=== PATIENT | female | born 1995 | race Caucasian/White ===

== ENCOUNTER 2018-03-29 13:02 | Emergency (ER) | payer OTHER ==
[2018-03-29 13:15] VITALS: O2SAT 99
[2018-03-29] MEDS ORDERED: Sodium Chloride 0.9% 1000 ML 1,000 ML IV STA (13:41)
[2018-03-29] MEDS ORDERED: Sodium Chloride 0.9% 1000 ML 1,000 ML ONE (13:51)
--- NOTE | 2018-03-29 13:55 | ERPHSYRPT ---
- History of Present Illness Time Seen by Provider: 03/29/18 13:20 Source: patient, program strategist Patient Subjective Stated Complaint: episode of weakness while at work. nasrin has a headache. got hot and dizzy. feeling better now. Triage Nursing Assessment: alert and oriented.able to ambulate to BR per self. nasrin has had a headache that has gone to the right side of her head. became dizzy and weak today. MAE. hope claire. neuro intact. Physician History: 23 y/o white female presents with weakness and dizziness that began uniform force [employer]. pt was at work. pt brought into ED by EMS. dizziness resolved. pt feeling fine yesterday but had a mild headache this am which has resolved. pt is taking celexa and no other meds. pt allergic to morphine. pt denies cp, soa and abd pain. pt denies n/v/d. Timing/Duration: today Severity: mild Modifying Factors: Improves With: other (sx improved spontaneously with time) Associated Symptoms: headaches, weakness, No nausea, No vomiting, No abdominal pain, No shortness of breath, No heartburn, No diaphoresis, No chest pain, No loss of appetite, No malaise, No syncope, No seizure Allergies/Adverse Reactions: morphine Allergy (Verified 03/29/18 13:22) Home Medications: Albuterol Sulfate [Proventil Hfa] 6.7 gm IH DAILY PRN PRN 09/06/13 [History] Bupropion HCl [Wellbutrin] 150 mg PO DAILY 12/06/15 [History] Hx Tetanus, Diphtheria Vaccination/Date Given: Yes (UNKNOWN) Hx Influenza Vaccination/Date Given: No Hx Pneumococcal Vaccination/Date Given: No - Review of Systems Constitutional: Weakness, No Fever, No Chills Eyes: No Symptoms, No Eye Pain, No Vision Changes, No Double Vision Ears, Nose, & Throat: No Symptoms, No Ear Pain, No Nose Congestion, No Mouth Pain, No Throat Swelling, No Painful Swallowing Respiratory: No Symptoms, No Cough, No Dyspnea, No Stridor, No Wheezing Cardiac: No Symptoms, No Chest Pain, No Palpitations, No Syncope Abdominal/Gastrointestinal: No Symptoms, No Abdominal Pain, No Nausea, No Vomiting, No Diarrhea Genitourinary Symptoms: No Symptoms, No Dysuria, No Frequency, No Hematuria Musculoskeletal: Arthralgias, Myalgias, No Deformity, No Fall, No Injury Skin: No Symptoms Neurological: Dizziness, Headache (resolved) Psychological: No Symptoms Endocrine: No Symptoms Hematologic/Lymphatic: No Symptoms Immunological/Allergic: No Symptoms All Other Systems: Reviewed and Negative - Past Medical History Pertinent Past Medical History: Yes Neurological History: Migraines ENT History: No Pertinent History Cardiac History: No Pertinent History Respiratory History: Asthma Endocrine Medical History: No Pertinent History Musculoskeletal History: No Pertinent History GI Medical History: GERD History: No Pertinent History Psycho-Social History: No Pertinent History Female Reproductive Disorders: Other Other Medical History: HPV, Ovarian cysts - Past Surgical History Past Surgical History: Yes Neuro Surgical History: No Pertinent History Cardiac: No Pertinent History Respiratory: No Pertinent History Gastrointestinal: No Pertinent History Genitourinary: No Pertinent History Musculoskeletal: No Pertinent History Female Surgical History: No Pertinent History Other Surgical History: EGD - Social History Smoking Status: Never smoker Exposure to second hand smoke: No Drug Use: none Patient Lives Alone: No Significant Family History: MIGRANES - Female History Hx Now: No - Nursing Vital Signs Nursing Vital Signs: Initial Vital Signs Pulse Rate 85 03/29/18 13:09 Respiratory Rate 18 03/29/18 13:09 Blood Pressure 131/76 03/29/18 13:09 O2 Sat by Pulse Oximetry 99 03/29/18 13:09 Pain Scale Pain Intensity 3 - Physical Exam General Appearance: no apparent distress, alert, anxiety Eye Exam: PERRL/EOMI, eyes nml inspection Ears, Nose, Throat Exam: normal ENT inspection, moist mucous membranes Neck Exam: normal inspection, non-tender, supple, full range of motion Respiratory Exam: normal breath sounds, lungs clear, airway intact, No chest tenderness, No respiratory distress, No accessory muscle use, No rhonchi, No wheezing, No stridor Cardiovascular Exam: regular rate/rhythm, normal heart sounds, normal peripheral pulses Gastrointestinal/Abdomen Exam: soft, normal bowel sounds, No tenderness, No guarding, No rebound Pelvic Exam: not done Rectal Exam: not done Back Exam: normal inspection, normal range of motion, No CVA tenderness, No vertebral tenderness Extremity Exam: normal inspection, normal range of motion, pelvis stable Neurologic Exam: alert, oriented x 3, cooperative, relay associate II-XII nml as tested, nml cerebellar function, nml station & gait, sensation nml, No disoriented, No confusion, No intoxicated appearance, No motor weakness, No facial droop, No slurred speech, No abnormal gait Skin Exam: normal color, warm, dry Lymphatic Exam: No adenopathy SpO2 Interpretation: normal SpO2: 99 Oxygen Delivery: Room Air - Course Nursing assessment & vital signs reviewed: Yes EKG Interpreted by Me: RATE (70), Sinus Rhythm, NORMAL AXIS, NORMAL INTERVALS, NORMAL QRS (when compared to ekg of 09/06/13, there is resolution of sinus tachycardia.) Ordered Tests: Active Orders 24 hr Category Date Time Status Schedule Announcer STAT Care 03/29/18 13:42 Active Clean Catch Urine Specimen STAT Care 03/29/18 13:41 Active EKG-ER Only STAT Care 03/29/18 13:41 Active IV Insertion STAT Care 03/29/18 13:41 Active CBC W DIFF Stat Lab 03/29/18 14:05 Completed CMP Stat Lab 03/29/18 14:05 Completed HCG,QUALITATIVE URINE Stat Lab 03/29/18 14:05 Completed UA W/RFX UR CULTURE Stat Lab 03/29/18 14:05 Completed Urine Triage Profile Stat Lab 03/29/18 14:05 Completed Medication Summary Discontinued Medications Generic Name Dose Route Start Last Admin Trade Name Freq PRN Reason Stop Dose Admin Sodium Chloride 1,000 mls @ 999 mls/hr 03/29/18 13:41 03/29/18 13:53 Sodium Chloride 0.9% 1000 Ml IV 03/29/18 14:41 999 mls/hr .Q1H1M STA Administration Sodium Chloride Confirm 03/29/18 13:51 Sodium Chloride 0.9% 1000 Ml Administered 03/29/18 13:52 Dose 1,000 mls @ ud .ROUTE .STK-MED ONE Lab/Rad Data: Laboratory Result Diagrams 03/29/18 14:05 03/29/18 14:05 Laboratory Results 03/29/18 03/29/18 03/29/18 Range/Units 14:05 14:05 14:05 WBC 7.1 (4.0-10.5) K/mm3 RBC 4.25 (4.1-5.4) M/mm3 Hgb 12.0 (12.0-16.0) gm/dl Hct 36.4 (35-47) % MCV 85.6 (78-100) fl MCH 28.2 (26-32) pg MCHC 33.0 (32-36) g/dl RDW 15.0 H (11.5-14.0) % Plt Count 247 (150-450) K/mm3 MPV 11.4 H (6-9.5) fl Gran % 63.8 (36.0-66.0) % Eos # (Auto) 0.20 (0-0.5) Absolute Lymphs (auto) 1.61 (1.0-4.6) Absolute Monos (auto) 0.73 (0.0-1.3) Lymphocytes % 22.8 L (24.0-44.0) % Monocytes % 10.3 (0.0-12.0) % Eosinophils % 2.8 (0.00-5.0) % Basophils % 0.3 (0.0-0.4) % Absolute Granulocytes 4.51 (1.4-6.9) Basophils # 0.02 (0-0.4) Sodium 139 (137-145) mmol/L Potassium 3.7 (3.5-5.1) mmol/L Chloride 105 (98-107) mmol/L Carbon Dioxide 26 (22-30) mmol/L Anion Gap 12.3 (5-15) MEQ/L BUN 13 (7-17) mg/dL Creatinine 0.56 (0.52-1.04) mg/dL Estimated GFR > 60.0 ML/MIN Glucose 78 (74-106) mg/dL Calcium 9.1 (8.4-10.2) mg/dL Total Bilirubin 0.10 L (0.2-1.3) mg/dL AST 22 (14-36) U/L ALT 18 (0-35) U/L Alkaline Phosphatase 54 (38-126) U/L Serum Total Protein 7.4 (6.3-8.2) g/dL Albumin 4.2 (3.5-5.0) g/dL Urine Color (YELLOW) Urine Appearance (CLEAR) Urine pH (5-6) Ur Specific [place] (1.005-1.025) Urine Protein (Negative) Urine Ketones (NEGATIVE) Urine Blood (0-5) Logan/ul Urine Nitrite (NEGATIVE) Urine Bilirubin (NEGATIVE) Urine Urobilinogen (0-1) mg/dL Ur Leukocyte Esterase (NEGATIVE) Urine WBC (Auto) (0-5) /HPF Urine RBC (Auto) (0-2) /HPF U Epithel Cells (Auto) (FEW) /HPF Urine Mucus (Auto) (NEGATIVE) /HPF Urine Culture Reflexed (NO) Urine Glucose (NEGATIVE) mg/dL Urine HCG, Qual NEGATIVE (Negative) Urine Opiates Level (NEGATIVE) Ur Methadone (NEGATIVE) Urine Barbiturates (NEGATIVE) Ur Phencyclidine (PCP) (NEGATIVE) Urine Amphetamine (NEGATIVE) U Benzodiazepine Level (NEGATIVE) Urine Cocaine (NEGATIVE) Urine Marijuana (THC) (NEGATIVE) 03/29/18 03/29/18 Range/Units 14:05 14:05 WBC (4.0-10.5) K/mm3 RBC (4.1-5.4) M/mm3 Hgb (12.0-16.0) gm/dl Hct (35-47) % MCV (78-100) fl MCH (26-32) pg MCHC (32-36) g/dl RDW (11.5-14.0) % Plt Count (150-450) K/mm3 MPV (6-9.5) fl Gran % (36.0-66.0) % Eos # (Auto) (0-0.5) Absolute Lymphs (auto) (1.0-4.6) Absolute Monos (auto) (0.0-1.3) Lymphocytes % (24.0-44.0) % Monocytes % (0.0-12.0) % Eosinophils % (0.00-5.0) % Basophils % (0.0-0.4) % Absolute Granulocytes (1.4-6.9) Basophils # (0-0.4) Sodium (137-145) mmol/L Potassium (3.5-5.1) mmol/L Chloride (98-107) mmol/L Carbon Dioxide (22-30) mmol/L Anion Gap (5-15) MEQ/L BUN (7-17) mg/dL Creatinine (0.52-1.04) mg/dL Estimated GFR ML/MIN Glucose (74-106) mg/dL Calcium (8.4-10.2) mg/dL Total Bilirubin (0.2-1.3) mg/dL AST (14-36) U/L ALT (0-35) U/L Alkaline Phosphatase (38-126) U/L Serum Total Protein (6.3-8.2) g/dL Albumin (3.5-5.0) g/dL Urine Color YELLOW (YELLOW) Urine Appearance SLIGHTLY CLOUDY (CLEAR) Urine pH 6.0 (5-6) Ur Specific [place] 1.016 (1.005-1.025) Urine Protein NEGATIVE (Negative) Urine Ketones NEGATIVE (NEGATIVE) Urine Blood NEGATIVE (0-5) Logan/ul Urine Nitrite NEGATIVE (NEGATIVE) Urine Bilirubin NEGATIVE (NEGATIVE) Urine Urobilinogen 2 (0-1) mg/dL Ur Leukocyte Esterase TRACE (NEGATIVE) Urine WBC (Auto) 0-2 (0-5) /HPF Urine RBC (Auto) 0-2 (0-2) /HPF U Epithel Cells (Auto) RARE (FEW) /HPF Urine Mucus (Auto) SLIGHT (NEGATIVE) /HPF Urine Culture Reflexed NO (NO) Urine Glucose NEGATIVE (NEGATIVE) mg/dL Urine HCG, Qual (Negative) Urine Opiates Level NEGATIVE (NEGATIVE) Ur Methadone NEGATIVE (NEGATIVE) Urine Barbiturates NEGATIVE (NEGATIVE) Ur Phencyclidine (PCP) NEGATIVE (NEGATIVE) Urine Amphetamine NEGATIVE (NEGATIVE) U Benzodiazepine Level NEGATIVE (NEGATIVE) Urine Cocaine NEGATIVE (NEGATIVE) Urine Marijuana (THC) NEGATIVE (NEGATIVE) - Progress Progress: unchanged Counseled pt/family regarding: lab results, diagnosis, need for follow-up - Departure Time of Disposition: 14:51 Departure Disposition: Home Clinical Impression: Weakness, UTI (urinary tract infection) Condition: Stable Critical Care Time: No Referrals: VANESSA JIAN [Primary Care Provider] - Additional Instructions: drink plenty of fluids. use tylenol or ibuprofen for pain issues. follow up with primary doctor for persistent symptoms Prescriptions: Cephalexin Mh 500 mg [Keflex 500 mg] 500 mg PO TID #21 capsule
[2018-03-29 14:14] LABS: BASOPHIL % 0.3 % (0.0-0.4); Basophil (Absolute #) 0.02 (0-0.4); Eosinophil % 2.8 % (0.00-5.0); Granulocyte Absolute (ANC) 4.51 (1.4-6.9); Granulocytes % 63.8 % (36.0-66.0); Hematocrit 36.4 % (35-47); Lymphocyte (Absolute #) 1.61 (1.0-4.6); Lymphocytes % 22.8 % (24.0-44.0); Mean Cell Volume 85.6 fl (78-100); Mean Corpuscular Hemoglobin 28.2 pg (26-32); Mean Platelet Volume 11.4 fl (6-9.5); Monocyte (Absolute #) 0.73 (0.0-1.3); Monocytes % 10.3 % (0.0-12.0); Platelet Count 247 K/mm3 (150-450); Red Blood Count 4.25 M/mm3 (4.1-5.4); White Blood Count 7.1 K/mm3 (4.0-10.5)
[2018-03-29 14:20] LABS: Appearance SLIGHTLY CLOUDY (CLEAR); Bilirubin NEGATIVE (NEGATIVE); Blood NEGATIVE Ery/ul (0-5); Glucose NEGATIVE (NEGATIVE); Ketones NEGATIVE (NEGATIVE); Leukocyte Esterase TRACE (NEGATIVE); Nitrite NEGATIVE (NEGATIVE); Protein,Urine Dip NEGATIVE (Negative); Specific Gravity 1.016 (1.005-1.025); Urobilinogen 2 mg/dL (0-1)
[2018-03-29 14:32] LABS: ALBUMIN 4.2 g/dL (3.5-5.0); ALKALINE PHOSPHATASE 54 U/L (38-126); ANION GAP 12.3 MEQ/L (5-15); BLOOD UREA NITROGEN 13 mg/dL (7-17); CHLORIDE 105 mmol/L (98-107); Calcium 9.1 mg/dL (8.4-10.2); Carbon Dioxide 26 mmol/L (22-30); Creatinine 1 0.56 mg/dL (0.52-1.04); Glucose 78 mg/dL (74-106); Potassium 3.7 mmol/L (3.5-5.1); SGOT/AST 22 U/L (14-36); SGPT/ALT 18 U/L (0-35); SODIUM 139 mmol/L (137-145); Total Protein 7.4 g/dL (6.3-8.2)
[2018-03-29 14:38] LABS: Amphetamine,Urine NEGATIVE (NEGATIVE); Barbiturate,Urine NEGATIVE (NEGATIVE); Benzodiazepine,Urine NEGATIVE (NEGATIVE); Cocaine,Urine NEGATIVE (NEGATIVE); Methadone,Urine NEGATIVE (NEGATIVE); Opiate,Urine NEGATIVE (NEGATIVE); PCP,Urine NEGATIVE (NEGATIVE); THC,Urine NEGATIVE (NEGATIVE)
[2018-03-29 15:03] VITALS: BP 127/72; PULSE 72
== END 2018-03-29 15:15 | disposition home or self-care (01) ==
LOC: ED 13:02
DX: R53.1 Weakness (principal); N39.0 Urinary tract infection, site not specified; R42 Dizziness and giddiness; R51 Headache; Z79.899 Other long term (current) drug therapy
CPT/HCPCS: 36000; 36415; 80053; 80307; 81001; 84703; 85025; 93005; 93041; 96360; 99284

== ENCOUNTER 2018-10-09 20:36 | Emergency (ER) | payer OTHER ==
--- NOTE | 2018-10-09 21:14 | ERPHSYRPT ---
- History of Present Illness Time Seen by Provider: 10/09/18 21:14 Source: patient, family Exam Limitations: no limitations Physician History: 23 y/o white female presents one week after 4 wisdom teeth extraction. pt still with pain. pt seen at [facility] 3 days ago. did not receive pain meds. still hurts. pt on pcn. Timing/Duration: gradual onset Severity: moderate ENT Location: dental Prearrival Treatment: over the counter meds Modifying Factors: Improves With: other (chewing hurts) Associated Symptoms: denies symptoms Allergies/Adverse Reactions: morphine Allergy (Verified 10/09/18 21:09) Home Medications: Bupropion HCl [Wellbutrin] 150 mg PO DAILY 12/06/15 [History] Hx Tetanus, Diphtheria Vaccination/Date Given: Yes (UNKNOWN) Hx Influenza Vaccination/Date Given: No Hx Pneumococcal Vaccination/Date Given: No - Review of Systems Constitutional: No Symptoms Eyes: No Symptoms Ears, Nose, & Throat: Other (dental pain surgical site pain) Respiratory: No Symptoms Cardiac: No Symptoms Abdominal/Gastrointestinal: No Symptoms Genitourinary Symptoms: No Symptoms Musculoskeletal: No Symptoms Skin: No Symptoms Neurological: No Symptoms Psychological: No Symptoms Endocrine: No Symptoms Hematologic/Lymphatic: No Symptoms Immunological/Allergic: No Symptoms All Other Systems: Reviewed and Negative - Past Medical History Pertinent Past Medical History: Yes Neurological History: No Pertinent History ENT History: No Pertinent History Cardiac History: No Pertinent History Respiratory History: Asthma Endocrine Medical History: No Pertinent History Musculoskeletal History: No Pertinent History GI Medical History: GERD History: No Pertinent History Psycho-Social History: No Pertinent History Female Reproductive Disorders: Other Other Medical History: HPV, Ovarian cysts - Past Surgical History Past Surgical History: Yes Neuro Surgical History: No Pertinent History Cardiac: No Pertinent History Respiratory: No Pertinent History Gastrointestinal: No Pertinent History Genitourinary: No Pertinent History Musculoskeletal: No Pertinent History Female Surgical History: No Pertinent History Other Surgical History: EGD - Social History Smoking Status: Never smoker Exposure to second hand smoke: No Drug Use: none Patient Lives Alone: No Significant Family History: MIGRANES - Nursing Vital Signs Nursing Vital Signs: Initial Vital Signs Temperature 98.2 F 10/09/18 21:10 Pulse Rate 86 10/09/18 21:10 Respiratory Rate 16 10/09/18 21:10 Blood Pressure 155/81 10/09/18 21:10 O2 Sat by Pulse Oximetry 96 04/23/19 21:10 Pain Scale Pain Intensity 7 - Physical Exam General Appearance: mild distress, alert, anxiety Eye Exam: bilateral eye: normal inspection, PERRL, EOMI Ear Exam: bilateral ear: auricle normal, canal normal, TM normal Nasal Exam: normal inspection Throat Exam: normal, pharynx normal, dental tenderness (tenderness at all 4 wisdom teeth extraction sites. no abscess. no open pockets) Neck Exam: normal inspection, non-tender, supple, full range of motion, trachea midline Cardiovascular/Respiratory Exam: chest non-tender Abdominal Exam: non-tender Neurologic Exam: alert, oriented x 3, cooperative, tie up worker II-XII nml as tested Skin Exam: normal color, warm SpO2 Interpretation: normal O2 Delivery: Room Air - Progress Progress: unchanged Counseled pt/family regarding: diagnosis, need for follow-up - Departure Departure Disposition: Home Clinical Impression: History of recent dental procedure, Pain, dental Condition: Stable Critical Care Time: No Referrals: VANESSA JAIN [Primary Care Provider] - Additional Instructions: add ibuprofen for pain. follow up with your oral surgeon tomorrow for further pain management issues. continue your antibiotic Prescriptions: Oxycodone HCl/Acetaminophen [Percocet 5-325 mg Tablet] 1 each PO Q12H PRN PRN # 4 tablet MDD 2 PRN Reason: Pain
[2018-10-09] MEDS ORDERED: PERCOCET TABLET 5/325MG PO STA (21:29)
[2018-10-09] MEDS ORDERED: PERCOCET TABLET 5/325MG ONE (21:30)
[2018-10-09 21:51] VITALS: BP 155/71; PULSE 90; O2SAT 100
== END 2018-10-09 21:51 | disposition home or self-care (01) ==
LOC: ED 20:36
DX: K08.89 Other specified disorders of teeth and supporting structures (principal); Z98.818 Other dental procedure status
CPT/HCPCS: 99283; A9270-GY

== ENCOUNTER 2019-06-24 22:13 | Emergency (ER) | payer MEDICAID, OTHER ==
--- NOTE | 2019-06-24 22:20 | ERPHSYRPT ---
- History of Present Illness Time Seen by Provider: 06/24/19 22:20 Source: patient, family Exam Limitations: no limitations Physician History: 24 /o white female presents with flu like sx that began a week ago. her initial influenza studies negative. since that time, she has had weakness, fatigue. today she noticed, as well as family, she was confused and slurring her speech. Timing/Duration: week(s) (1) Severity: mild Associated Symptoms: cough, weakness, No nausea, No vomiting, No abdominal pain , No chest pain, No fever Allergies/Adverse Reactions: morphine Allergy (Verified 10/09/18 21:09) Home Medications: Cetirizine HCl [Allergy Relief] 10 mg PO DAILY 06/24/19 [History] Citalopram Hydrobromide [Celexa] 20 mg PO DAILY 06/24/19 [History] Montelukast Sodium 10 mg PO DAILY 06/24/19 [History] Hx Tetanus, Diphtheria Vaccination/Date Given: Yes (UNKNOWN) Hx Influenza Vaccination/Date Given: No Hx Pneumococcal Vaccination/Date Given: No - Review of Systems Constitutional: Weakness Eyes: No Symptoms Ears, Nose, & Throat: No Symptoms Respiratory: Cough Cardiac: No Symptoms, No Chest Pain, No Palpitations, No Syncope Abdominal/Gastrointestinal: No Symptoms Genitourinary Symptoms: No Symptoms Musculoskeletal: No Symptoms Skin: No Symptoms Neurological: No Symptoms Psychological: No Symptoms Endocrine: No Symptoms Hematologic/Lymphatic: No Symptoms Immunological/Allergic: No Symptoms All Other Systems: Reviewed and Negative - Past Medical History Pertinent Past Medical History: Yes Neurological History: No Pertinent History ENT History: No Pertinent History Cardiac History: No Pertinent History Respiratory History: Asthma Endocrine Medical History: No Pertinent History Musculoskeletal History: No Pertinent History GI Medical History: GERD History: No Pertinent History Psycho-Social History: No Pertinent History Female Reproductive Disorders: Other Other Medical History: HPV, Ovarian cysts - Past Surgical History Past Surgical History: Yes Neuro Surgical History: No Pertinent History Cardiac: No Pertinent History Respiratory: No Pertinent History Gastrointestinal: No Pertinent History Genitourinary: No Pertinent History Musculoskeletal: No Pertinent History Female Surgical History: No Pertinent History Other Surgical History: EGD - Social History Smoking Status: Never smoker Exposure to second hand smoke: No Drug Use: none Patient Lives Alone: No Significant Family History: MIGRANES - Nursing Vital Signs Nursing Vital Signs: Initial Vital Signs Temperature 98.4 F 06/24/19 22:19 Pulse Rate 79 06/24/19 22:19 Respiratory Rate 13 06/24/19 22:19 Blood Pressure 125/94 06/24/19 22:19 O2 Sat by Pulse Oximetry 100 06/24/19 22:19 Pain Scale Pain Intensity 0 - Physical Exam General Appearance: no apparent distress, alert, anxiety Eye Exam: PERRL/EOMI, eyes nml inspection Ears, Nose, Throat Exam: normal ENT inspection, moist mucous membranes Neck Exam: normal inspection, non-tender, supple, full range of motion Respiratory Exam: normal breath sounds, lungs clear, airway intact, No chest tenderness, No respiratory distress Cardiovascular Exam: regular rate/rhythm, normal heart sounds, normal peripheral pulses Gastrointestinal/Abdomen Exam: soft, normal bowel sounds, No tenderness Pelvic Exam: not done Rectal Exam: not done Back Exam: normal inspection, normal range of motion, No CVA tenderness Extremity Exam: normal inspection, normal range of motion, pelvis stable Neurologic Exam: alert, oriented x 3, cooperative, director of retention II-XII nml as tested, normal mood/affect, nml cerebellar function, nml station & gait Skin Exam: normal color, warm, dry Lymphatic Exam: No adenopathy SpO2 Interpretation: normal O2 Delivery: Room Air - Course Nursing assessment & vital signs reviewed: Yes Ordered Tests: Active Orders 24 hr Category Date Time Status IV Insertion STAT Care 06/24/19 22:48 Active HEAD WITHOUT CONTRAST [CT] Stat Exams 06/25/19 00:03 Taken AMYLASE Stat Lab 06/24/19 23:15 Completed CBC W DIFF Stat Lab 06/24/19 23:15 Completed CMP Stat Lab 06/24/19 23:15 Completed HCG,QUALITATIVE URINE Stat Lab 06/25/19 02:10 Completed LIPASE Stat Lab 06/24/19 23:15 Completed Lactic Acid Stat Lab 06/24/19 23:25 Completed Manual Differential NC Stat Lab 06/24/19 23:15 Completed [place] Screen Stat Lab 06/24/19 23:15 Completed UA W/RFX UR CULTURE Stat Lab 06/24/19 02:10 Completed Medication Summary Discontinued Medications Generic Name Dose Route Start Last Admin Trade Name Freq PRN Reason Stop Dose Admin Sodium Chloride 1,000 mls @ 999 mls/hr 06/24/19 22:48 06/25/19 00:51 Sodium Chloride 0.9% 1000 Ml IV 06/24/19 23:48 999 mls/hr .Q1H1M STA Administration Sodium Chloride Confirm 06/25/19 00:51 Sodium Chloride 0.9% 1000 Ml Administered 06/25/19 00:52 Dose 1,000 mls @ ud .ROUTE .STK-MED ONE Ondansetron HCl 4 mg 06/24/19 22:48 06/25/19 00:52 Zofran 4 Mg/2 Ml Vial IV 06/24/19 22:49 4 mg STAT ONE Administration Ondansetron HCl Confirm 06/25/19 00:51 Zofran 4 Mg/2 Ml Vial Administered 06/25/19 00:52 Dose 4 mg .ROUTE .STK-MED ONE Lab/Rad Data: Laboratory Result Diagrams 06/24/19 23:15 06/24/19 23:15 Laboratory Results 06/25/19 06/24/19 06/24/19 Range/Units 02:10 23:25 23:15 WBC (4.0-10.5) K/mm3 RBC (4.1-5.4) M/mm3 Hgb (12.0-16.0) gm/dl Hct (35-47) % MCV (78-100) fl MCH (26-32) pg MCHC (32-36) g/dl RDW (11.5-14.0) % Plt Count (150-450) K/mm3 MPV (7.5-11.0) fl Absolute Granulocytes (1.4-6.9) Sodium (137-145) mmol/L Potassium (3.5-5.1) mmol/L Chloride (98-107) mmol/L Carbon Dioxide (22-30) mmol/L Anion Gap (5-15) MEQ/L BUN (7-17) mg/dL Creatinine (0.52-1.04) mg/dL Estimated GFR ML/MIN Glucose (74-106) mg/dL Lactic Acid 1.2 (0.4-2.0) Calcium (8.4-10.2) mg/dL Total Bilirubin (0.2-1.3) mg/dL AST (14-36) U/L ALT (0-35) U/L Alkaline Phosphatase (38-126) U/L Serum Total Protein (6.3-8.2) g/dL Albumin (3.5-5.0) g/dL Amylase (30-110) U/L Lipase (23-300) U/L Urine Color (YELLOW) Urine Appearance (CLEAR) Urine pH (5-6) Ur Specific [place] (1.005-1.025) Urine Protein (Negative) Urine Ketones (NEGATIVE) Urine Blood (0-5) Logan/ul Urine Nitrite (NEGATIVE) Urine Bilirubin (NEGATIVE) Urine Urobilinogen (0-1) mg/dL Ur Leukocyte Esterase (NEGATIVE) Urine RBC (Auto) (0-2) /HPF U Epithel Cells (Auto) (FEW) /HPF Unidentified Crystals (NEGATIVE) /HPF Other Casts (Auto) (NEGATIVE) /LPF Urine Mucus (Auto) (NEGATIVE) /HPF Urine Culture Reflexed (NO) Urine Glucose (NEGATIVE) mg/dL Urine HCG, Qual NEGATIVE (Negative) Monoscreen (Negative) Influenza Type A Ag NEGATIVE (NEGATIVE) Influenza Type B Ag NEGATIVE (NEGATIVE) RSV (PCR) NEGATIVE (Negative) Group A Strep Antibody NEGATIVE (NEGATIVE) 06/24/19 06/24/19 06/24/19 Range/Units 23:15 23:15 23:15 WBC 6.1 (4.0-10.5) K/mm3 RBC 3.90 L (4.1-5.4) M/mm3 Hgb 10.9 L (12.0-16.0) gm/dl Hct 33.4 L (35-47) % MCV 85.6 (78-100) fl MCH 27.9 (26-32) pg MCHC 32.6 (32-36) g/dl RDW 15.1 H (11.5-14.0) % Plt Count 238 (150-450) K/mm3 MPV 10.4 (7.5-11.0) fl Absolute Granulocytes 2.88 (1.4-6.9) Sodium 140 (137-145) mmol/L Potassium 3.8 (3.5-5.1) mmol/L Chloride 106 (98-107) mmol/L Carbon Dioxide 31 H (22-30) mmol/L Anion Gap 8.0 (5-15) MEQ/L BUN 7 (7-17) mg/dL Creatinine 0.60 (0.52-1.04) mg/dL Estimated GFR > 60.0 ML/MIN Glucose 94 (74-106) mg/dL Lactic Acid (0.4-2.0) Calcium 9.3 (8.4-10.2) mg/dL Total Bilirubin 0.30 (0.2-1.3) mg/dL AST 36 (14-36) U/L ALT 33 (0-35) U/L Alkaline Phosphatase 65 (38-126) U/L Serum Total Protein 7.2 (6.3-8.2) g/dL Albumin 3.9 (3.5-5.0) g/dL Amylase 52 (30-110) U/L Lipase 106 (23-300) U/L Urine Color (YELLOW) Urine Appearance (CLEAR) Urine pH (5-6) Ur Specific [place] (1.005-1.025) Urine Protein (Negative) Urine Ketones (NEGATIVE) Urine Blood (0-5) Logan/ul Urine Nitrite (NEGATIVE) Urine Bilirubin (NEGATIVE) Urine Urobilinogen (0-1) mg/dL Ur Leukocyte Esterase (NEGATIVE) Urine RBC (Auto) (0-2) /HPF U Epithel Cells (Auto) (FEW) /HPF Unidentified Crystals (NEGATIVE) /HPF Other Casts (Auto) (NEGATIVE) /LPF Urine Mucus (Auto) (NEGATIVE) /HPF Urine Culture Reflexed (NO) Urine Glucose (NEGATIVE) mg/dL Urine HCG, Qual (Negative) Monoscreen NEGATIVE (Negative) Influenza Type A Ag (NEGATIVE) Influenza Type B Ag (NEGATIVE) RSV (PCR) (Negative) Group A Strep Antibody (NEGATIVE) 06/24/19 Range/Units 02:10 WBC (4.0-10.5) K/mm3 RBC (4.1-5.4) M/mm3 Hgb (12.0-16.0) gm/dl Hct (35-47) % MCV (78-100) fl MCH (26-32) pg MCHC (32-36) g/dl RDW (11.5-14.0) % Plt Count (150-450) K/mm3 MPV (7.5-11.0) fl Absolute Granulocytes (1.4-6.9) Sodium (137-145) mmol/L Potassium (3.5-5.1) mmol/L Chloride (98-107) mmol/L Carbon Dioxide (22-30) mmol/L Anion Gap (5-15) MEQ/L BUN (7-17) mg/dL Creatinine (0.52-1.04) mg/dL Estimated GFR ML/MIN Glucose (74-106) mg/dL Lactic Acid (0.4-2.0) Calcium (8.4-10.2) mg/dL Total Bilirubin (0.2-1.3) mg/dL AST (14-36) U/L ALT (0-35) U/L Alkaline Phosphatase (38-126) U/L Serum Total Protein (6.3-8.2) g/dL Albumin (3.5-5.0) g/dL Amylase (30-110) U/L Lipase (23-300) U/L Urine Color YELLOW (YELLOW) Urine Appearance SLIGHTLY CLOUDY (CLEAR) Urine pH 7.0 (5-6) Ur Specific [place] 1.013 (1.005-1.025) Urine Protein NEGATIVE (Negative) Urine Ketones NEGATIVE (NEGATIVE) Urine Blood NEGATIVE (0-5) Logan/ul Urine Nitrite NEGATIVE (NEGATIVE) Urine Bilirubin NEGATIVE (NEGATIVE) Urine Urobilinogen 2 (0-1) mg/dL Ur Leukocyte Esterase NEGATIVE (NEGATIVE) Urine RBC (Auto) 0-2 (0-2) /HPF U Epithel Cells (Auto) RARE (FEW) /HPF Unidentified Crystals 2-5 (NEGATIVE) /HPF Other Casts (Auto) NEGATIVE (NEGATIVE) /LPF Urine Mucus (Auto) SLIGHT (NEGATIVE) /HPF Urine Culture Reflexed NO (NO) Urine Glucose NEGATIVE (NEGATIVE) mg/dL Urine HCG, Qual (Negative) Monoscreen (Negative) Influenza Type A Ag (NEGATIVE) Influenza Type B Ag (NEGATIVE) RSV (PCR) (Negative) Group A Strep Antibody (NEGATIVE) - Progress Progress: improved Progress Note: 06/25/19 02:34 ct head-no acute intracranial process Counseled pt/family regarding: lab results, diagnosis, need for follow-up, rad results - Departure Departure Disposition: Home Clinical Impression: Weakness Condition: Stable Critical Care Time: No Referrals: VANESSA JAIN [Primary Care Provider] - Additional Instructions: drink plenty of fluids. follow up with primary for further management
[2019-06-24 22:31] VITALS: O2SAT 100
[2019-06-24] MEDS ORDERED: Zofran 4 MG/2 ML VIAL IV ONE (22:48)
[2019-06-24] MEDS ORDERED: Sodium Chloride 0.9% 1000 ML 1,000 ML IV STA (22:48)
[2019-06-24 23:24] LABS: Absolute Neutrophil Ct (ANC) 2.88 (1.4-6.9); Hematocrit 33.4 % (35-47); Hemoglobin 10.9 gm/dl (12.0-16.0); Mean Cell Volume 85.6 fl (78-100); Mean Corpuscular Hemoglobin 27.9 pg (26-32); Mean Corpuscular Hgb Concent. 32.6 g/dl (32-36); Mean Platelet Volume 10.4 fl (7.5-11.0); Platelet Count 238 K/mm3 (150-450); Red Cell Distribution Width 15.1 % (11.5-14.0); White Blood Count 6.1 K/mm3 (4.0-10.5)
[2019-06-24 23:36] LABS: ALBUMIN 3.9 g/dL (3.5-5.0); ALKALINE PHOSPHATASE 65 U/L (38-126); AMYLASE 52 U/L (30-110); BLOOD UREA NITROGEN 7 mg/dL (7-17); CHLORIDE 106 mmol/L (98-107); Calcium 9.3 mg/dL (8.4-10.2); Carbon Dioxide 31 mmol/L (22-30); Glucose 94 mg/dL (74-106); LIPASE 106 U/L (23-300); Potassium 3.8 mmol/L (3.5-5.1); SGOT/AST 36 U/L (14-36); SGPT/ALT 33 U/L (0-35); SODIUM 140 mmol/L (137-145); Total Protein 7.2 g/dL (6.3-8.2)
[2019-06-25 00:05] LABS: INFLUENZA A NEGATIVE (NEGATIVE); INFLUENZA B NEGATIVE (NEGATIVE); RESPIRATORY SYNCTIAL VIRUS NEGATIVE (Negative)
[2019-06-25] MEDS ORDERED: Sodium Chloride 0.9% 1000 ML 1,000 ML ONE (00:51)
[2019-06-25] MEDS ORDERED: Zofran 4 MG/2 ML VIAL ONE (00:51)
[2019-06-25 02:12] VITALS: BP 127/80; PULSE 78
[2019-06-25 02:17] LABS: Appearance SLIGHTLY CLOUDY (CLEAR); Bilirubin NEGATIVE (NEGATIVE); Blood NEGATIVE Ery/ul (0-5); Epithelial Cells RARE /HPF (FEW); Glucose NEGATIVE (NEGATIVE); Ketones NEGATIVE (NEGATIVE); Leukocyte Esterase NEGATIVE (NEGATIVE); Mucus SLIGHT /HPF (NEGATIVE); Nitrite NEGATIVE (NEGATIVE); Protein,Urine Dip NEGATIVE (Negative); RBC 0-2 /HPF (0-2); Specific Gravity 1.013 (1.005-1.025); Urobilinogen 2 mg/dL (0-1)
[2019-06-25 05:36] LABS: ANISOCYTOSIS 2+; BAND 1 % (0.0-2.0); Basophil 2 % (0.0-1.0); Eosinophil 10 % (0.00-3.0); Hypochromia 1+; Lymphocytes 31 % (24-44); Monocyte 2 % (0.0-12.0); Neutrophils 54 % (36.0-66.0); Platelet Estimate NORMAL (NORMAL); Poikilocytosis 1+; Total Cells Counted 100
--- NOTE | 2019-06-25 08:51 | XRAY ---
Indication: Headache, dizziness, and generalized weakness. Multiple contiguous axial images obtained through the head without contrast. Comparison: None Normal appearing brain parenchyma, ventricles, and bony calvarium. Visualized paranasal sinuses and mastoid air cells are clear. Impression: Normal CT head without contrast exam. Comment: Preliminary interpretation was made by [facility]. No discrepancy.
== END 2019-06-25 03:09 | disposition home or self-care (01) ==
LOC: ED 22:13
DX: R53.1 Weakness (principal)
CPT/HCPCS: 36000; 36415; 70450; 80053; 81001; 82150; 83605; 83690; 84703; 85025; 86308; 87631; 87651; 96360; 96374; 99284; J2405

== ENCOUNTER 2021-02-12 15:14 | Emergency (ER) | payer OTHER ==
[2021-02-12] MEDS ORDERED: BABY ASPIRIN 81 MG CHEW PO ONE (15:32)
--- NOTE | 2021-02-12 15:32 | ERPHSYRPT ---
- History of Present Illness Time Seen by Provider: 02/12/21 15:32 Historian: patient, EMS Exam Limitations: no limitations Patient Subjective Stated Complaint: pt here for pain to center of chest after walking back from bathroom today, she took her husbands nitro without relief, she states she is under stress due to oldest going to pre school Triage Nursing Assessment: pt arrived per ambulance, alert, resp easy, skin w/d/p, abd soft, no edema noted face mask in place Physician History: This is a 26-year-old overweight white female patient of Dr. Field history of asthma, hypothyroidism, anxiety and gastroesophageal reflux disease. Patient states that she is always under a lot of stress and today she took her oldest to preschool and experienced left anterior chest pain while walking. Patient did take a nitroglycerin that was her prior to arrival. The chest pain is completely resolved at the time of evaluation. Patient has no history of coronary artery disease. She does not see a carpenter assistant. She is not on any oral contraceptive agents. She has no cough. She denies fever. She denies abd ominal pain. She has no known clotting or bleeding disorders. Timing/Duration: today Activities at Onset: none Quality: aching (Left anterior chest wall) Location: other (Left anterior chest wall) Chest Pain Radiation: arm (Left arm) Severity of Pain-Max: mild Severity of Pain-Current: mild Modifying Factors: Improves With: nothing Associated Symptoms: denies symptoms Prior Chest Pain/Cardiac Workup: no prior chest pain Nitro Today/Relief: no nitro taken today Aspirin Treatment Today: no aspirin today Allergies/Adverse Reactions: morphine Allergy (Verified 02/12/21 15:22) Home Medications: Cetirizine HCl [Allergy Relief] 10 mg PO DAILY 06/24/19 [History] Citalopram Hydrobromide [Celexa] 20 mg PO DAILY 06/24/19 [History] Montelukast Sodium 10 mg PO DAILY 06/24/19 [History] Hydroxyzine HCl 1 ea DAILY 02/12/21 [History] Levothyroxine Sodium 25 Mcg [Synthroid 25 Mcg] 1 ea DAILY 02/12/21 [History] Hx Tetanus, Diphtheria Vaccination/Date Given: Yes (UNKNOWN) Hx Influenza Vaccination/Date Given: No Hx Pneumococcal Vaccination/Date Given: No Immunizations Up to Date: Yes Travel Risk - International Travel Have you traveled outside of the country in past 3 weeks: No - Coronavirus Screening Are you exhibiting any of the following symptoms?: No Close contact with a COVID-19 positive Pt in past 14-21 Days: No - Vaccine Status Have you recieved a Covid-19 vaccination: No - Review of Systems Constitutional: No Symptoms Eyes: No Symptoms Ears, Nose, & Throat: No Symptoms Respiratory: No Symptoms Cardiac: Chest Pain (Left anterior chest wall) Abdominal/Gastrointestinal: No Symptoms Genitourinary Symptoms: No Symptoms Musculoskeletal: No Symptoms Skin: No Symptoms Neurological: No Symptoms Psychological: No Symptoms Endocrine: No Symptoms Hematologic/Lymphatic: No Symptoms Immunological/Allergic: No Symptoms All Other Systems: Reviewed and Negative - Past Medical History Pertinent Past Medical History: Yes Neurological History: No Pertinent History ENT History: No Pertinent History Cardiac History: No Pertinent History Respiratory History: Asthma Endocrine Medical History: Hypothyroidism Musculoskeletal History: No Pertinent History GI Medical History: GERD History: No Pertinent History Psycho-Social History: Anxiety, Depression Female Reproductive Disorders: Other Other Medical History: HPV, Ovarian cysts - Past Surgical History Past Surgical History: Yes Neuro Surgical History: No Pertinent History Cardiac: No Pertinent History Respiratory: No Pertinent History Gastrointestinal: No Pertinent History Genitourinary: No Pertinent History Musculoskeletal: No Pertinent History Female Surgical History: No Pertinent History Other Surgical History: EGD - Social History Smoking Status: Never smoker Exposure to second hand smoke: No Drug Use: none Patient Lives Alone: No Significant Family History: MIGRANES - Female History Hx Last Menstrual Period: last week Hx Now: No - Nursing Vital Signs Nursing Vital Signs: Initial Vital Signs Temperature 98.1 F 02/12/21 15:14 Pulse Rate 102 H 02/12/21 15:14 Respiratory Rate 18 02/12/21 15:14 Blood Pressure 143/81 02/12/21 15:14 O2 Sat by Pulse Oximetry 97 02/12/21 15:14 Pain Scale Pain Intensity 5 - Physical Exam General Appearance: no apparent distress, alert, anxiety, obese Eye Exam: PERRL/EOMI, eyes nml inspection Ears, Nose, Throat Exam: normal ENT inspection, moist mucous membranes Neck Exam: normal inspection, non-tender, supple, full range of motion Respiratory Exam: normal breath sounds, chest tenderness (Mild left anterior chest wall. Now resolved.), lungs clear, airway intact, No respiratory distress Cardiovascular Exam: regular rate/rhythm, normal heart sounds, normal peripheral pulses Gastrointestinal/Abdomen Exam: soft, normal bowel sounds, No tenderness Pelvic Exam: not done Rectal Exam: not done Back Exam: normal inspection, normal range of motion, No CVA tenderness, No vertebral tenderness Extremity Exam: normal inspection, normal range of motion, pelvis stable Neurologic Exam: alert, oriented x 3, cooperative, advertising operations coordinator II-XII nml as tested, normal mood/affect, nml cerebellar function, nml station & gait, sensation nml Skin Exam: normal color, warm, dry Lymphatic Exam: No adenopathy SpO2 Interpretation: normal SpO2: 97 O2 Delivery: Room Air - Course Nursing assessment & vital signs reviewed: Yes EKG Interpreted by Me: RATE (92), NORMAL AXIS, NORMAL INTERVALS, NORMAL QRS, NORMAL ST-T, Other (no changes when compared to ekg 03/29/18) Ordered Tests: Active Orders 24 hr Category Date Time Status Director Of Healthcare Systems STAT Care 02/12/21 15:33 Active EKG-ER Only STAT Care 02/12/21 15:32 Active IV Insertion STAT Care 02/12/21 15:32 Active Pulse Oximetry (ED) STAT Care 02/12/21 15:32 Active CHEST 1 VIEW (PORTABLE) Stat Exams 02/12/21 15:32 Completed CHEST WITH CONTRAST [CT] Stat Exams 02/12/21 16:06 Taken CBC W DIFF Stat Lab 02/12/21 15:32 Completed CMP Stat Lab 02/12/21 15:30 Completed D-DIMER QUANTITATIVE Stat Lab 02/12/21 15:30 Completed PROTIME WITH INR Stat Lab 02/12/21 15:30 Completed T4 (Thyroxine) Stat Lab 02/12/21 16:05 Completed TROPONIN Q3H Lab 02/12/21 15:30 Completed TROPONIN Q3H Lab 02/12/21 18:45 Ordered TROPONIN Q3H Lab 02/12/21 21:45 Ordered TROPONIN Q3H Lab 02/13/21 00:45 Ordered TROPONIN Q3H Lab 02/13/21 03:45 Ordered TSH [TSH, 3RD Generation] Stat Lab 02/12/21 16:05 Completed Medication Summary Discontinued Medications Generic Name Dose Route Start Last Admin Trade Name Freq PRN Reason Stop Dose Admin Acetaminophen 650 mg 02/12/21 16:45 02/12/21 16:47 Tylenol 325 Mg PO 02/12/21 16:46 650 mg STAT STA Administration Acetaminophen Confirm 02/12/21 16:46 Tylenol 325 Mg Administered 02/12/21 16:47 Dose 650 mg .ROUTE .STK-MED ONE Aspirin 324 mg 02/12/21 15:32 02/12/21 15:58 Baby Aspirin 81 Mg Chew PO 02/12/21 15:33 324 mg STAT ONE Administration Sodium Chloride 500 mls @ 500 mls/hr 02/12/21 16:06 02/12/21 16:11 Sodium Chloride 0.9% 500 Ml IV 02/12/21 17:05 500 mls/hr .Q1H ONE Administration Sodium Chloride Confirm 02/12/21 16:09 Sodium Chloride 0.9% 500 Ml Administered 02/12/21 16:10 Dose 500 mls @ ud IV .STK-MED ONE Lab/Rad Data: Laboratory Result Diagrams 02/12/21 15:32 02/12/21 15:30 Laboratory Results 02/12/21 02/12/21 02/12/21 Range/Units 16:05 15:32 15:30 WBC 8.9 (4.0-10.5) K/mm3 RBC 4.30 (4.1-5.4) M/mm3 Hgb 12.3 (12.0-16.0) gm/dl Hct 37.4 (35-47) % MCV 87.0 (78-100) fl MCH 28.6 (26-32) pg MCHC 32.9 (32-36) g/dl RDW 14.5 H (11.5-14.0) % Plt Count 291 (150-450) K/mm3 MPV 10.3 (7.5-11.0) fl Gran % 71.4 H (36.0-66.0) % Eos # (Auto) 0.16 (0-0.5) Absolute Lymphs (auto) 1.72 (1.0-4.6) Absolute Monos (auto) 0.64 (0.0-1.3) Lymphocytes % 19.3 L (24.0-44.0) % Monocytes % 7.2 (0.0-12.0) % Eosinophils % 1.8 (0.00-5.0) % Basophils % 0.3 (0.0-0.4) % Absolute Granulocytes 6.34 (1.4-6.9) Basophils # 0.03 (0-0.4) PT (9.4-12.5) SECONDS INR (0.8-3.0) D-Dimer (215-500) ng/mL Sodium (137-145) mmol/L Potassium (3.5-5.1) mmol/L Chloride (98-107) mmol/L Carbon Dioxide (22-30) mmol/L Anion Gap (5-15) MEQ/L BUN (7-17) mg/dL Creatinine (0.52-1.04) mg/dL Estimated GFR ML/MIN Glucose (74-106) mg/dL Calcium (8.4-10.2) mg/dL Total Bilirubin (0.2-1.3) mg/dL AST (14-36) U/L ALT (0-35) U/L Alkaline Phosphatase (38-126) U/L Troponin I < 0.012 (0.000-0.034) ng/mL Serum Total Protein (6.3-8.2) g/dL Albumin (3.5-5.0) g/dL Thyroxine (T4) 11.1 H (5.53-10.96) ug/dL TSH 3rd Generation 1.930 (0.47-4.68) mIU/L 02/12/21 02/12/21 Range/Units 15:30 15:30 WBC (4.0-10.5) K/mm3 RBC (4.1-5.4) M/mm3 Hgb (12.0-16.0) gm/dl Hct (35-47) % MCV (78-100) fl MCH (26-32) pg MCHC (32-36) g/dl RDW (11.5-14.0) % Plt Count (150-450) K/mm3 MPV (7.5-11.0) fl Gran % (36.0-66.0) % Eos # (Auto) (0-0.5) Absolute Lymphs (auto) (1.0-4.6) Absolute Monos (auto) (0.0-1.3) Lymphocytes % (24.0-44.0) % Monocytes % (0.0-12.0) % Eosinophils % (0.00-5.0) % Basophils % (0.0-0.4) % Absolute Granulocytes (1.4-6.9) Basophils # (0-0.4) PT 10.9 (9.4-12.5) SECONDS INR 0.92 (0.8-3.0) D-Dimer 1258 H* (215-500) ng/mL Sodium 137 (137-145) mmol/L Potassium 3.5 (3.5-5.1) mmol/L Chloride 105 (98-107) mmol/L Carbon Dioxide 22 (22-30) mmol/L Anion Gap 13.8 (5-15) MEQ/L BUN 9 (7-17) mg/dL Creatinine 0.74 (0.52-1.04) mg/dL Estimated GFR > 60.0 ML/MIN Glucose 120 H (74-106) mg/dL Calcium 9.2 (8.4-10.2) mg/dL Total Bilirubin 0.40 (0.2-1.3) mg/dL AST 24 (14-36) U/L ALT 19 (0-35) U/L Alkaline Phosphatase 65 (38-126) U/L Troponin I (0.000-0.034) ng/mL Serum Total Protein 7.0 (6.3-8.2) g/dL Albumin 4.0 (3.5-5.0) g/dL Thyroxine (T4) (5.53-10.96) ug/dL TSH 3rd Generation (0.47-4.68) mIU/L - Progress Progress: improved, re-examined Air Movement: good Progress Note: 02/12/21 16:12 Chest x-ray shows no acute cardiopulmonary process. 02/12/21 17:17 CAT scan of the chest with contrast shows no pulmonary embolus. There is no acute cardiopulmonary process. Blood Culture(s) Obtained: No Antibiotics given: No Counseled pt/family regarding: lab results, diagnosis, need for follow-up, rad results - Departure Departure Disposition: Home Clinical Impression: Musculoskeletal pain, Chest pain Condition: Stable Critical Care Time: No Referrals: VANESSA FIELD [Primary Care Provider] - Additional Instructions: Use Tylenol and ibuprofen for pain control. Follow-up with your primary care physician for further management. Return to emergency department if symptoms recur.
[2021-02-12 15:44] LABS: Absolute Neutrophil Ct (ANC) 6.34 (1.4-6.9); BASOPHIL % 0.3 % (0.0-0.4); Basophil (Absolute #) 0.03 (0-0.4); Eosinophil % 1.8 % (0.00-5.0); Eosinophil (Absolute #) 0.16 (0-0.5); Hematocrit 37.4 % (35-47); Hemoglobin 12.3 gm/dl (12.0-16.0); Lymphocyte (Absolute #) 1.72 (1.0-4.6); Lymphocytes % 19.3 % (24.0-44.0); Mean Corpuscular Hemoglobin 28.6 pg (26-32); Mean Corpuscular Hgb Concent. 32.9 g/dl (32-36); Mean Platelet Volume 10.3 fl (7.5-11.0); Monocyte (Absolute #) 0.64 (0.0-1.3); Monocytes % 7.2 % (0.0-12.0); Neutrophil % 71.4 % (36.0-66.0); Platelet Count 291 K/mm3 (150-450); Red Cell Distribution Width 14.5 % (11.5-14.0); White Blood Count 8.9 K/mm3 (4.0-10.5)
[2021-02-12 15:51] LABS: INR 0.92 (0.8-3.0); PROTIME 10.9 SECONDS (9.4-12.5)
--- NOTE | 2021-02-12 15:54 | XRAY ---
Indication: Chest pain. Comparison: March 25, 2009. Portable chest again demonstrates normal heart, lungs, and bony thorax.
[2021-02-12 15:56] LABS: ALKALINE PHOSPHATASE 65 U/L (38-126); ANION GAP 13.8 MEQ/L (5-15); BLOOD UREA NITROGEN 9 mg/dL (7-17); CHLORIDE 105 mmol/L (98-107); Calcium 9.2 mg/dL (8.4-10.2); Carbon Dioxide 22 mmol/L (22-30); Creatinine 1 0.74 mg/dL (0.52-1.04); EST GLOMERULAR FILTRATION RATE > 60.0 ML/MIN; Glucose 120 mg/dL (74-106); Potassium 3.5 mmol/L (3.5-5.1); SGOT/AST 24 U/L (14-36); SGPT/ALT 19 U/L (0-35); SODIUM 137 mmol/L (137-145)
[2021-02-12] MEDS ORDERED: Sodium Chloride 0.9% 500 ML 500 ML IV ONE ×2 (16:06→16:09)
[2021-02-12] MEDS ORDERED: TYLENOL 325 MG PO STA (16:45)
[2021-02-12] MEDS ORDERED: TYLENOL 325 MG ONE (16:46)
[2021-02-12 16:53] LABS: T4 (Thyroxine) 11.1 ug/dL (5.53-10.96); TSH, 3RD Generation 1.93 mIU/L (0.47-4.68)
[2021-02-12 18:09] VITALS: BP 157/97; PULSE 83; O2SAT 96
--- NOTE | 2021-02-12 21:32 | XRAY ---
Indication: Left chest/arm pain and nausea. Elevated d-dimer. Multiple contiguous axial images obtained through the chest using 80 cc of Isovue-370 contrast and PE protocol. Comparison: None There is adequate opacification of the pulmonary arteries to include the lobar and segmental branches. No pulmonary embolus. Heart not enlarged. Aorta normal in course and caliber. No pathologic mediastinal/hilar lymphadenopathy. Lungs inflated and clear. Bony thorax intact. Limited upper abdomen demonstrates mild fatty liver. Impression: 1. Negative pulmonary embolus. No acute cardiopulmonary abnormalities. 2. Incidental fatty liver.
== END 2021-02-12 18:09 | disposition home or self-care (01) ==
LOC: ED 15:14
DX: M79.18 Myalgia, other site (principal); R07.9 Chest pain, unspecified
CPT/HCPCS: 36000; 36415; 71045; 71260; 80053; 84436; 84443; 84484; 85025; 85379; 85610; 93005; 93041; 94760; 99284; A9270-GY

== ENCOUNTER 2022-09-04 12:09 | Emergency (ER) | payer OTHER ==
[2022-09-04 13:11] LABS: INFLUENZA A NEGATIVE (NEGATIVE); INFLUENZA B NEGATIVE (NEGATIVE); RESPIRATORY SYNCTIAL VIRUS NEGATIVE (NEGATIVE); SARS-CoV-2 Xpert Express NEGATIVE (NEGATIVE)
--- NOTE | 2022-09-04 13:15 | ERPHSYRPT ---
- History of Present Illness Source: patient Exam Limitations: no limitations Patient Subjective Stated Complaint: Pt has a sore throat and her son was diagnosed with strep yesterday and she is to have a gallbladder consult on Monday and so she wanted to make see if she had it or not Triage Nursing Assessment: Pt was brought to the ER by her , tachycardic, rates pain as 4/10, throat appears red but no puscules visualized, headache, slight dizziness, denies N&V, denies diarrhea, doesn't appear to be in any distress Physician History: 27 yo wf who tested + for FluB on 08/27/[address] x 1day. Her child tested + for strep yesterday. She still has cough/coryza but denies fever/N/V/D/dysuria/hematuria. Timing/Duration: yesterday Cough Quality/Degree: dry cough Possible Cause: no prior episodes Modifying Factors: Improves With: nothing Associated Symptoms: cough, nasal congestion, nasal drainage, sore throat, No fever, No chills, No chest pain/soreness, No dizziness, No earache, No facial pain, No headache, No lightheadedness, No muscle aches, No shortness of breath, No sinus infection, No wheezing Allergies/Adverse Reactions: morphine Allergy (Verified 09/04/22 12:28) Home Medications: Cetirizine HCl [Allergy Relief] 10 mg PO DAILY 06/24/19 [History] Montelukast Sodium 10 mg PO DAILY 06/24/19 [History] Levothyroxine Sodium 25 Mcg [Synthroid 25 Mcg] 1 ea DAILY 02/12/21 [History] hydrOXYzine HCL [Hydroxyzine HCl] 1 ea DAILY 02/12/21 [History] PANTOPRAZOLE 40 mg Tablet [Protonix 40MG Tablet] 40 mg PO DAILY 09/04/22 [History] Venlafaxine HCl [Venlafaxine HCl ER] 225 mg PO DAILY 09/04/22 [History] Hx Tetanus, Diphtheria Vaccination/Date Given: Yes (UNKNOWN) Hx Influenza Vaccination/Date Given: No Hx Pneumococcal Vaccination/Date Given: No Travel Risk - International Travel Have you traveled outside of the country in past 3 weeks: No - Coronavirus Screening Are you exhibiting any of the following symptoms?: No Close contact with a COVID-19 positive Pt in past 14-21 Days: No - Vaccine Status Have you recieved a Covid-19 vaccination: No - Review of Systems Constitutional: No Symptoms Eyes: No Symptoms Ears, Nose, & Throat: No Symptoms, Nose Congestion, Nose Discharge Respiratory: No Symptoms, Cough Cardiac: No Symptoms Abdominal/Gastrointestinal: No Symptoms Genitourinary Symptoms: No Symptoms Musculoskeletal: No Symptoms Skin: No Symptoms Neurological: No Symptoms Psychological: No Symptoms Endocrine: No Symptoms Hematologic/Lymphatic: No Symptoms Immunological/Allergic: No Symptoms - Past Medical History Pertinent Past Medical History: Yes Neurological History: Migraines ENT History: No Pertinent History Cardiac History: No Pertinent History Respiratory History: Asthma Endocrine Medical History: Other Musculoskeletal History: No Pertinent History GI Medical History: GERD History: No Pertinent History Psycho-Social History: Anxiety, Depression Female Reproductive Disorders: Other Other Medical History: PREVIOUS HYPOTHYROIDSM THAT HAS RESOLVED. - Past Surgical History Past Surgical History: Yes Neuro Surgical History: No Pertinent History Cardiac: No Pertinent History Respiratory: No Pertinent History Gastrointestinal: No Pertinent History Genitourinary: No Pertinent History Musculoskeletal: No Pertinent History Female Surgical History: No Pertinent History Other Surgical History: EGD - Social History Smoking Status: Never smoker Exposure to second hand smoke: No Drug Use: none Patient Lives Alone: No Significant Family History: MIGRANES - Female History Hx Last Menstrual Period: 08/16/2022 Hx Now: No - Nursing Vital Signs Nursing Vital Signs: Initial Vital Signs Temperature 97.9 F 09/04/22 12:19 Pulse Rate 120 H 09/04/22 12:19 Blood Pressure 112/86 09/04/22 12:19 O2 Sat by Pulse Oximetry 97 09/04/22 12:19 Pain Scale Pain Intensity 2 Tachy - Physical Exam General Appearance: no apparent distress Eye Exam: PERRL/EOMI, eyes nml inspection Ears, Nose, Throat Exam: normal ENT inspection, TMs normal, pharyngeal erythema (Mild) Neck Exam: normal inspection, non-tender, supple, full range of motion, No meningismus, No mass, No Brudzinski, No Kernig's, No carotid bruit Respiratory Exam: normal breath sounds, lungs clear, airway intact, No respiratory distress Cardiovascular Exam: tachycardia, capillary refill <2 sec, No murmur Gastrointestinal/Abdomen Exam: soft, normal bowel sounds, No tenderness Back Exam: normal inspection, normal range of motion, CVA tenderness, No vertebral tenderness Extremity Exam: normal inspection, normal range of motion Neurologic Exam: alert, oriented x 3, cooperative, supervisor pastry II-XII nml as tested, normal mood/affect, nml cerebellar function, nml station & gait, sensation nml Skin Exam: normal color, warm, dry Lymphatic Exam: No adenopathy SpO2 Interpretation: normal SpO2: 97 O2 Delivery: Room Air - Radiology Exams Chest X-ray Interpretation: Interpreted by me (VAN) Ordered Tests: Active Orders 24 hr Category Date Time Status CHEST 1 VIEW (PORTABLE) Stat Exams 09/04/22 13:32 Taken Lab/Rad Data: Laboratory Results 09/04/22 09/04/22 Range/Units 12:32 12:32 Influenza Type A Ag NEGATIVE (NEGATIVE) Influenza Type B Ag NEGATIVE (NEGATIVE) RSV (PCR) NEGATIVE (NEGATIVE) SARS-CoV-2 (PCR) NEGATIVE (NEGATIVE) Group A Strep Antibody DETECTED (NEGATIVE) - Progress Progress Note: 09/04/22 14:15 Nursing note and vital signs reviewed No food or housing insecurities noted Lab results reviewed and shared w pt CXR read per ER physician Counseled pt/family regarding: lab results, diagnosis, need for follow-up, rad results - Departure Departure Disposition: Home Clinical Impression: Strep pharyngitis Condition: Stable Critical Care Time: No Referrals: VANESSA JAIN [Primary Care Provider] - Follow up/PCP as directed Instructions: Strep Throat (DC) Additional Instructions: Rest/fluids/Motrin/Tylenol Start Penicillin three times a day for 10 days Forms: Work/School Release Form Prescriptions: Penicillin V Potassium 500 mg PO TID #30 tablet
[2022-09-04 13:46] VITALS: BP 122/82; PULSE 76
[2022-09-04 14:17] VITALS: O2SAT 97
--- NOTE | 2022-09-04 19:20 | XRAY ---
Indication: Cough. Sore throat. Influenza. Comparison: February 12, 2021 Portable chest again demonstrates normal heart, lungs, and bony thorax.
== END 2022-09-04 13:46 | disposition home or self-care (01) ==
LOC: ED 12:09
DX: J02.0 Streptococcal pharyngitis (principal); R05.9 Cough, unspecified; Z79.899 Other long term (current) drug therapy; Z28.310 Unvaccinated for COVID-19
CPT/HCPCS: 0241U; 71045; 87651; 99283

== ENCOUNTER 2023-02-11 18:26 | Emergency (ER) | payer OTHER ==
[2023-02-11 18:44] VITALS: BP 150/103; PULSE 112; TEMP 99.1; O2SAT 99
--- NOTE | 2023-02-11 19:25 | ERPHSYRPT ---
- History of Present Illness Time Seen by Provider: 02/11/23 19:20 Source: patient Exam Limitations: no limitations Patient Subjective Stated Complaint: Pt states that since yesterday she has been having a sharp pain and warmth that starts at the top of her left thigh and goes to her knee and then the calf area feels weak but doesn't have the pain or warmth, the leg is cool to the touch Triage Nursing Assessment: Pt brought to the ER by her , hypertensive, tachycardic, denies pain at this time but the worse pain is rated at 4.5/10 when she gets it, femoral and popliteal pulses normal, skin is cool with no redness, no difficulties with strength, denies any injuries, doesn't appear to be in any distress Allergies/Adverse Reactions: morphine Allergy (Verified 02/11/23 18:44) Home Medications: Cetirizine HCl [Allergy Relief] 10 mg PO DAILY 06/24/19 [History] Montelukast Sodium 10 mg PO DAILY 06/24/19 [History] Levothyroxine Sodium 25 Mcg [Synthroid 25 Mcg] 50 mcg PO DAILY 02/12/21 [History] hydrOXYzine HCL [Hydroxyzine HCl] 50 mg PO DAILY 02/12/21 [History] Venlafaxine HCl [Venlafaxine HCl ER] 225 mg PO DAILY 09/04/22 [History] Phentermine HCl 37.5 mg PO DAILY 02/11/23 [History] Hx Tetanus, Diphtheria Vaccination/Date Given: Yes (UNKNOWN) Hx Influenza Vaccination/Date Given: No Hx Pneumococcal Vaccination/Date Given: No Travel Risk - International Travel Have you traveled outside of the country in past 3 weeks: No - Coronavirus Screening Are you exhibiting any of the following symptoms?: No Close contact with a COVID-19 positive Pt in past 14-21 Days: No - Vaccine Status Have you recieved a Covid-19 vaccination: No - Past Medical History Pertinent Past Medical History: Yes Neurological History: Migraines ENT History: No Pertinent History Cardiac History: No Pertinent History Respiratory History: Asthma Endocrine Medical History: Other Musculoskeletal History: No Pertinent History GI Medical History: GERD History: No Pertinent History Psycho-Social History: Anxiety, Depression Female Reproductive Disorders: Other Other Medical History: PREVIOUS HYPOTHYROIDSM THAT HAS RESOLVED. - Past Surgical History Past Surgical History: Yes Neuro Surgical History: No Pertinent History Cardiac: No Pertinent History Respiratory: No Pertinent History Gastrointestinal: No Pertinent History Genitourinary: No Pertinent History Musculoskeletal: No Pertinent History Female Surgical History: No Pertinent History Other Surgical History: EGD - Social History Smoking Status: Never smoker Exposure to second hand smoke: No Drug Use: none Patient Lives Alone: No Significant Family History: MIGRANES - Female History Hx Last Menstrual Period: approx 3 weeks ago Hx Now: No (unsure) - Nursing Vital Signs Nursing Vital Signs: Initial Vital Signs Temperature 99.1 F 02/11/23 18:36 Pulse Rate 112 H 02/11/23 18:36 Blood Pressure 150/103 02/11/23 18:36 O2 Sat by Pulse Oximetry 99 02/11/23 18:36 Pain Scale Pain Intensity 0 - Physical Exam SpO2: 99 - Departure Departure Disposition: Home Clinical Impression: Piriformis syndrome of left side, Meralgia paresthetica of left side Condition: Good Critical Care Time: No Referrals: [facility] - MARCUS MALDONADO PHLEBOTOMY COORDINATOR [NON-STAFF Y W/O PRIVILEGES] - Follow up/PCP as directed Instructions: Sciatica Exercises Prescriptions: Prednisone 10 mg [Deltasone 10 mg] 10 mg PO DAILY 5 Days #5 tablet
== END 2023-02-11 19:36 | disposition home or self-care (01) ==
LOC: ED 18:26
DX: G57.02 Lesion of sciatic nerve, left lower limb (principal); G57.12 Meralgia paresthetica, left lower limb; Z79.52 Long term (current) use of systemic steroids; Z79.899 Other long term (current) drug therapy; Z28.310 Unvaccinated for COVID-19
CPT/HCPCS: 99281

== ENCOUNTER 2023-08-25 22:30 | Emergency (ER) | payer OTHER ==
--- NOTE | 2023-08-25 22:39 | ERPHSYRPT ---
- History of Present Illness Time Seen by Provider: 08/25/23 22:38 Historian: patient Exam Limitations: no limitations Physician History: 28yo f presents by EMS for epigastric pain that radiates into the sternum and wraps around her right side into her right shoulder blade. Pt reports the pain was 10/10 when she called EMS but has now resolved. Pt reports she was tachy pneic and nauseous during this episode, states it started while she was reading a book. Pt denies any current cp, soa, n/v, pt does report some mild epigastric discomfort as well as RLQ discomfort. Pt reports hx of anxiety, hx of cholecystecomy in 2022. Timing/Duration: today, hour(s) (1h RELIGIOUS EDUCATION COORDINATOR) Activities at Onset: none Quality: sharpness, tightness Abdominal Pain Onset Location: epigastric Pain Radiation: RLQ, scapula, chest Severity of Pain-Max: moderate Severity of Pain-Current: none Modifying Factors: Improves With: nothing Associated Symptoms: chest pain, nausea, No diaphoresis, No diarrhea Previous symptoms: different symptoms Body Map: 1 - epigastric pain wrapping into right scapula 2 - pain wraps around into right scapula Allergies/Adverse Reactions: morphine Allergy (Verified 08/25/23 22:32) Home Medications: Cetirizine HCl [Allergy Relief] 10 mg PO DAILY 06/24/19 [History] Montelukast Sodium 10 mg PO DAILY 06/24/19 [History] Levothyroxine Sodium 25 Mcg [Synthroid 25 Mcg] 75 mcg PO DAILY 02/12/21 [History] hydrOXYzine HCL [Hydroxyzine HCl] 50 mg PO DAILY 02/12/21 [History] Venlafaxine HCl [Venlafaxine HCl ER] 225 mg PO DAILY 09/04/22 [History] Phentermine HCl 37.5 mg PO DAILY 02/11/23 [History] Meloxicam 7.5 mg PO DAILY 08/25/23 [History] Hx Tetanus, Diphtheria Vaccination/Date Given: Yes (UNKNOWN) Hx Influenza Vaccination/Date Given: No Hx Pneumococcal Vaccination/Date Given: No Travel Risk - Vaccine Status Have you recieved a Covid-19 vaccination: No - Review of Systems Constitutional: No Symptoms Respiratory: No Cough, No Dyspnea, No Wheezing Cardiac: No Chest Pain, No Palpitations, No Syncope Abdominal/Gastrointestinal: Abdominal Pain, Nausea, No Vomiting, No Diarrhea, No Constipation Genitourinary Symptoms: No Symptoms - Past Medical History Pertinent Past Medical History: Yes Neurological History: Migraines ENT History: No Pertinent History Cardiac History: No Pertinent History Respiratory History: Asthma Endocrine Medical History: Other Musculoskeletal History: No Pertinent History GI Medical History: GERD History: No Pertinent History Psycho-Social History: Anxiety, Depression Female Reproductive Disorders: Other Other Medical History: PREVIOUS HYPOTHYROIDSM THAT HAS RESOLVED. - Past Surgical History Past Surgical History: Yes Neuro Surgical History: No Pertinent History Cardiac: No Pertinent History Respiratory: No Pertinent History Gastrointestinal: No Pertinent History Genitourinary: No Pertinent History Musculoskeletal: No Pertinent History Female Surgical History: No Pertinent History Other Surgical History: EGD - Social History Smoking Status: Never smoker Exposure to second hand smoke: No Drug Use: none Patient Lives Alone: No Significant Family History: MIGRANES - Female History Hx Now: No - Nursing Vital Signs Nursing Vital Signs: Initial Vital Signs Temperature 97.3 F 08/25/23 22:30 Pulse Rate 94 H 08/25/23 22:30 Respiratory Rate 12 08/25/23 22:30 Blood Pressure 148/98 08/25/23 22:30 O2 Sat by Pulse Oximetry 98 08/25/23 22:30 Pain Scale Pain Intensity 2 - Physical Exam General Appearance: no apparent distress, alert Respiratory Exam: normal breath sounds, lungs clear, airway intact, No chest tenderness, No respiratory distress, No diminished breath sounds Cardiovascular Exam: regular rate/rhythm, normal heart sounds, normal peripheral pulses Gastrointestinal/Abdomen Exam: soft, normal bowel sounds, tenderness (RLQ ), No distention, No guarding Neurologic Exam: alert, oriented x 3, cooperative SpO2 Interpretation: normal SpO2: 97 O2 Delivery: Room Air - Course EKG Interpreted by Me: RATE (83), Sinus Rhythm, NORMAL AXIS, NORMAL ST-T, Other (qtcb [id number]) Ordered Tests: Active Orders 24 hr Category Date Time Status EKG-ER Only STAT Care 08/25/23 22:35 Active ABDOMEN AND PELVIS W CONTRAST [CT] Stat Exams 08/25/23 23:26 Completed CHEST 2 VIEWS (PA AND LAT) Stat Exams 08/25/23 22:35 Taken CBC W DIFF Stat Lab 08/25/23 22:50 Completed CMP Stat Lab 08/25/23 22:50 Completed HCG QUALITATIVE, URINE Stat Lab 08/25/23 23:13 Completed LIPASE Stat Lab 08/25/23 22:50 Completed TROPONIN Q4H Lab 08/25/23 22:50 Completed TROPONIN Q4H Lab 08/26/23 02:45 Ordered TROPONIN Q4H Lab 08/26/23 06:45 Ordered UA W/RFX UR CULTURE Stat Lab 08/25/23 23:13 Completed Urine Triage Profile Stat Lab 08/25/23 23:13 Completed Medication Summary Discontinued Medications Generic Name Dose Route Start Last Admin Trade Name Ana PRN Reason Stop Dose Admin Sodium Chloride 1,000 mls @ 999 mls/hr 08/25/23 22:35 08/26/23 00:08 Sodium Chloride 0.9% 1000 Ml IV 08/25/23 23:35 Infused .Q1H1M STA Infusion Sodium Chloride Confirm 08/25/23 22:53 Sodium Chloride 0.9% 1000 Ml Administered 08/25/23 22:54 Dose 1,000 mls @ ud .ROUTE .STK-MED ONE Lab/Rad Data: Laboratory Result Diagrams 08/25/23 22:50 08/25/23 22:50 Laboratory Results 08/25/23 08/25/23 08/25/23 Range/Units 23:13 23:13 23:13 WBC (4.0-10.5) x10^3/uL RBC (4.1-5.4) x10^6/uL Hgb (12.0-16.0) g/dL Hct (35-47) % MCV (78-100) fL MCH (26-32) pg MCHC (32-36) g/dL RDW (11.5-14.0) % Plt Count (150-450) x10^3/uL MPV (7.5-11.0) fL Gran % (36.0-66.0) % Immature Gran % (Auto) (0.00-0.4) % Nucleat RBC Rel Count (0.00-0.1) % Eos # (Auto) (0-0.5) x10^3/uL Immature Gran # (Auto) (0.00-0.03) x10^3u/L Absolute Lymphs (auto) (1.0-4.6) x10^3/uL Absolute Monos (auto) (0.0-1.3) x10^3/uL Absolute Nucleated RBC (0.00-0.01) x10^3u/L Lymphocytes % (24.0-44.0) % Monocytes % (0.0-12.0) % Eosinophils % (0.00-5.0) % Basophils % (0.0-0.4) % Absolute Granulocytes (1.4-6.9) x10^3/uL Basophils # (0-0.4) x10^3/uL Sodium (135-145) mmol/L Potassium (3.5-5.1) mmol/L Chloride (98-107) mmol/L Carbon Dioxide (22-30) mmol/L Anion Gap (5-15) MEQ/L BUN (7-17) mg/dL Creatinine (0.52-1.04) mg/dL Estimated GFR ML/MIN Glucose (74-106) mg/dL Calcium (8.4-10.2) mg/dL Total Bilirubin (0.2-1.3) mg/dL AST (14-36) U/L ALT (0-35) U/L Alkaline Phosphatase (38-126) U/L Troponin I (0.000-0.034) ng/mL Serum Total Protein (6.3-8.2) g/dL Albumin (3.5-5.0) g/dL Lipase (23-300) U/L Urine Color Yellow (Yellow) Urine Appearance Clear (Clear) Urine pH 7.0 (4.6-8.0) Ur Specific [place] 1.015 (1.005-1.030) Urine Protein Negative (Negative) Urine Glucose (UA) Negative (Negative) mg/dL Urine Ketones Negative (Negative) Urine Blood Negative (Negative) Urine Nitrite Negative (Negative) Urine Bilirubin Negative (Negative) Urine Urobilinogen 2.0 A (0.2) mg/dL Ur Leukocyte Esterase Negative (Negative) U Hyaline Cast (Auto) NONE SEEN (0-2) /LPF Urine Microscopic RBC 0-2 (0-5) /HPF Urine Microscopic WBC 0-2 (0-5) /HPF Ur Epithelial Cells None Seen (None Seen) /HPF Urine Bacteria None Seen (None Seen) /HPF Urine Culture Reflexed NO (NO) Urine HCG, Qual NEGATIVE (NEGATIVE) Urine Opiates Level NEGATIVE (NEGATIVE) Ur Methadone NEGATIVE (NEGATIVE) Urine Barbiturates NEGATIVE (NEGATIVE) Ur Phencyclidine (PCP) NEGATIVE (NEGATIVE) Urine Amphetamine NEGATIVE (NEGATIVE) U Benzodiazepine Level NEGATIVE (NEGATIVE) Urine Cocaine NEGATIVE (NEGATIVE) Urine Marijuana (THC) NEGATIVE (NEGATIVE) 08/25/23 08/25/23 08/25/23 Range/Units 22:50 22:50 22:50 WBC 7.5 (4.0-10.5) x10^3/uL RBC 3.99 L (4.1-5.4) x10^6/uL Hgb 11.2 L (12.0-16.0) g/dL Hct 34.5 L (35-47) % MCV 86.5 (78-100) fL MCH 28.1 (26-32) pg MCHC 32.5 (32-36) g/dL RDW 14.3 H (11.5-14.0) % Plt Count 288 (150-450) x10^3/uL MPV 10.3 (7.5-11.0) fL Gran % 81.2 H (36.0-66.0) % Immature Gran % (Auto) 0.3 (0.00-0.4) % Nucleat RBC Rel Count 0.0 (0.00-0.1) % Eos # (Auto) 0 (0-0.5) x10^3/uL Immature Gran # (Auto) 0.02 (0.00-0.03) x10^3u/L Absolute Lymphs (auto) 0.91 L (1.0-4.6) x10^3/uL Absolute Monos (auto) 0.46 (0.0-1.3) x10^3/uL Absolute Nucleated RBC 0.00 (0.00-0.01) x10^3u/L Lymphocytes % 12.1 L (24.0-44.0) % Monocytes % 6.1 (0.0-12.0) % Eosinophils % 0.0 (0.00-5.0) % Basophils % 0.3 (0.0-0.4) % Absolute Granulocytes 6.12 (1.4-6.9) x10^3/uL Basophils # 0.02 (0-0.4) x10^3/uL Sodium 136 (135-145) mmol/L Potassium 3.4 L (3.5-5.1) mmol/L Chloride 107 (98-107) mmol/L Carbon Dioxide 20 L (22-30) mmol/L Anion Gap 12.0 (5-15) MEQ/L BUN 8 (7-17) mg/dL Creatinine 0.64 (0.52-1.04) mg/dL Estimated GFR 123.4 ML/MIN Glucose 112 H (74-106) mg/dL Calcium 8.6 (8.4-10.2) mg/dL Total Bilirubin 0.50 (0.2-1.3) mg/dL AST 30 (14-36) U/L ALT 24 (0-35) U/L Alkaline Phosphatase 80 (38-126) U/L Troponin I < 0.012 (0.000-0.034) ng/mL Serum Total Protein 6.7 (6.3-8.2) g/dL Albumin 3.8 (3.5-5.0) g/dL Lipase 78 (23-300) U/L Urine Color (Yellow) Urine Appearance (Clear) Urine pH (4.6-8.0) Ur Specific [place] (1.005-1.030) Urine Protein (Negative) Urine Glucose (UA) (Negative) mg/dL Urine Ketones (Negative) Urine Blood (Negative) Urine Nitrite (Negative) Urine Bilirubin (Negative) Urine Urobilinogen (0.2) mg/dL Ur Leukocyte Esterase (Negative) U Hyaline Cast (Auto) (0-2) /LPF Urine Microscopic RBC (0-5) /HPF Urine Microscopic WBC (0-5) /HPF Ur Epithelial Cells (None Seen) /HPF Urine Bacteria (None Seen) /HPF Urine Culture Reflexed (NO) Urine HCG, Qual (NEGATIVE) Urine Opiates Level (NEGATIVE) Ur Methadone (NEGATIVE) Urine Barbiturates (NEGATIVE) Ur Phencyclidine (PCP) (NEGATIVE) Urine Amphetamine (NEGATIVE) U Benzodiazepine Level (NEGATIVE) Urine Cocaine (NEGATIVE) Urine Marijuana (THC) (NEGATIVE) - Progress Progress: improved Progress Note: 03/08/24 23:47 sx resolved at time of exam pt resting comfortable 08/26/23 01:53 CT abd/pel w/ contrast negative for acute intraabdominal findings 08/26/23 01:53 sx likely 2/2 anxiety based on clinical hx, physical exam, labs/imaging plan for dc home w/ PCP f/u - Dr Field, to discuss current anxiety regimen use breathing techniques for acute episodes of anxiety 08/26/23 02:08 Medical Desision Making - Risk of complications Minimal Risk: Minimal risk of morbidity - Departure Departure Disposition: Home Clinical Impression: Anxiety Condition: Stable Critical Care Time: No Referrals: VANESSA FIELD [Primary Care Provider] - Follow up/PCP as directed Additional Instructions: plan for dc home w/ PCP f/u - Dr Field, to discuss current anxiety regimen use breathing techniques for acute episodes of anxiety return to ED if sx return and persist
[2023-08-25 22:50] VITALS: TEMP 97.3
[2023-08-25] MEDS ORDERED: Sodium Chloride 0.9% 1000 ML 1,000 ML ONE (22:53)
[2023-08-25] MEDS: Sodium Chloride 0.9% 1000 ML 1,000 ML IV STA (22:55)
[2023-08-25 23:08] LABS: Absolute Neutrophil Ct (ANC) 6.12 x10^3/uL (1.4-6.9); BASOPHIL % 0.3 % (0.0-0.4); Basophil (Absolute #) 0.02 x10^3/uL (0-0.4); Eosinophil (Absolute #) 0 x10^3/uL (0-0.5); Hematocrit 34.5 % (35-47); Hemoglobin 11.2 g/dL (12.0-16.0); IMMATURE GRAN # 0.02 x10^3u/L (0.00-0.03); IMMATURE GRAN % 0.3 % (0.00-0.4); Lymphocyte (Absolute #) 0.91 x10^3/uL (1.0-4.6); Lymphocytes % 12.1 % (24.0-44.0); Mean Cell Volume 86.5 fL (78-100); Mean Corpuscular Hemoglobin 28.1 pg (26-32); Mean Corpuscular Hgb Concent. 32.5 g/dL (32-36); Mean Platelet Volume 10.3 fL (7.5-11.0); Monocyte (Absolute #) 0.46 x10^3/uL (0.0-1.3); Monocytes % 6.1 % (0.0-12.0); Neutrophil % 81.2 % (36.0-66.0); Platelet Count 288 x10^3/uL (150-450); Red Blood Count 3.99 x10^6/uL (4.1-5.4); Red Cell Distribution Width 14.3 % (11.5-14.0); White Blood Count 7.5 x10^3/uL (4.0-10.5)
[2023-08-25 23:19] LABS: HCG URINE TEST NEGATIVE (NEGATIVE)
[2023-08-25 23:24] LABS: Appearance Clear (Clear); Bacteria None Seen /HPF (None Seen); Bilirubin Negative (Negative); Blood Negative (Negative); Epithelial Cells None Seen /HPF (None Seen); Glucose, Urine Negative (Negative); Hyaline Casts NONE SEEN /LPF (0-2); Ketones Negative (Negative); Leukocyte Esterase Negative (Negative); Nitrite Negative (Negative); Protein,Urine Dip Negative (Negative); RBC 0-2 /HPF (0-5); Specific Gravity 1.015 (1.005-1.030); WBC 0-2 /HPF (0-5)
[2023-08-25 23:27] LABS: ALBUMIN 3.8 g/dL (3.5-5.0); BILIRUBIN,TOTAL 0.5 mg/dL (0.2-1.3); Calcium 8.6 mg/dL (8.4-10.2); Creatinine 1 0.64 mg/dL (0.52-1.04); EST GLOMERULAR FILTRATION RATE 123.4 ML/MIN; Potassium 3.4 mmol/L (3.5-5.1); Total Protein 6.7 g/dL (6.3-8.2)
[2023-08-25 23:29] LABS: ADD URINE CULTURE? NO (NO)
[2023-08-25 23:34] LABS: Amphetamine,Urine NEGATIVE (NEGATIVE); Barbiturate,Urine NEGATIVE (NEGATIVE); Benzodiazepine,Urine NEGATIVE (NEGATIVE); Cocaine,Urine NEGATIVE (NEGATIVE); Methadone,Urine NEGATIVE (NEGATIVE); Opiate,Urine NEGATIVE (NEGATIVE); PCP,Urine NEGATIVE (NEGATIVE); THC,Urine NEGATIVE (NEGATIVE)
--- NOTE | 2023-08-26 01:42 | XRAY ---
CLINICAL HISTORY: epigastric pain, LLQ pain TECHNIQUE: Multiple contiguous axial images were obtained from the level of diaphragm to the pubis symphysis. This study was acquired after the IV administration of iodinated contrast material, given the patients indications for the examination. If IV contrast material had not been administered, the likelihood of detecting abnormalities relevant to the patients condition would have been substantially decreased. Coronal and sagittal reformatted images were generated and reviewed to improve anatomic localization and optimize lesion detection. CT scan was performed according to ALARA (as low as reasonable achievable). COMPARISON: None FINDINGS: The visualized lung bases are clear. ABDOMEN/PELVIS: The liver is normal in size and attenuation. No focal liver lesions are seen. There is no intra or extrahepatic biliary ductal dilatation. Hepatic vasculature is patent. The gallbladder is not definitely visualized. The spleen, pancreas, and adrenal glands are unremarkable. The kidneys are normal in size and attenuation. There is no hydronephrosis or perinephric fat stranding. No renal calculi or renal masses are identified. The ureters are normal in caliber and no ureteral calculi are seen. The bladder is normal in contour. No evidence of focal or diffuse bowel wall thickening or evidence of bowel obstruction is seen. The appendix is visualized in the right lower quadrant and appears within normal limits. Submucosal edema is noted in the large bowel loops, suggestive of prior infectious etiology. Uterus and adnexa appear normal. There is a dominant follicle in the right ovary, No adenopathy or fluid collections are seen. The aorta is normal in caliber. No aggressive appearing osseous lesions are identified. There is a small fat containing umbiliacl hernia. IMPRESSION: 1. NO acute intraabdominal pathology is identified. Electronically Signed by: Dr. Michael Nye MD. (08/26/2023 01:37:49 EST)
[2023-08-26 02:01] VITALS: BP 138/105; PULSE 83; RESP 15
[2023-08-26 02:02] VITALS: O2SAT 97
--- NOTE | 2023-08-26 08:03 | XRAY ---
Indication: Epigastric pain. Comparison: September 04, 2022 PA/lateral chest again demonstrates normal heart, lungs, and bony thorax.
== END 2023-08-26 02:18 | disposition home or self-care (01) ==
LOC: ED 22:30
DX: R10.13 Epigastric pain (principal); F41.9 Anxiety disorder, unspecified; Z79.899 Other long term (current) drug therapy; Z20.828 Contact with and (suspected) exposure to other viral communicable diseases
CPT/HCPCS: 36415; 71046; 74177; 80053; 80307; 81001; 81025; 83690; 84484; 85025; 93005; 96360; 99284

== ENCOUNTER 2024-02-22 21:42 | Emergency (ER) | payer OTHER ==
[2024-02-22 22:20] VITALS: TEMP 98.3
[2024-02-22] MEDS ORDERED: Hydromorphone 1 mg/ml Injection ONE (22:43)
[2024-02-22] MEDS: Hydromorphone 1 mg/ml Injection IM ONE (22:48)
[2024-02-22 22:53] VITALS: O2SAT 97
--- NOTE | 2024-02-22 23:28 | ERPHSYRPT ---
- History of Present Illness Time Seen by Provider: 02/22/24 21:54 Source: patient Exam Limitations: no limitations Patient Subjective Stated Complaint: pain all over body, even my skin hurts. I've been seeing a consumer services advisor at [facility] for this but it has gotten w orse since yesterday. Triage Nursing Assessment: Pt ambulated to room without difficulty. A&O X 3. Skin color WNL for race. Pt able to move extremities without difficulty but has flat affect. Denies swelling, cough, fever, N/V/D. Does have CAMPBELL and pain in skin described as constant dull ache with intermittent sharp joint pain. Physician History: 29-year-old presented in the ER with complaints of aches and pains all over. Patient reports she has been following up with rheumatology and is in the process of getting a diagnosis. Patient reports off-and-on she has this flareup where she is having aches and pains all over and even her clothes touching her skin causes pain. Usually it gets better after taking Tylenol/Aleve but this time she is having pain constantly since yesterday. No fever or chills reported. No swelling of the joints. No known sick contact. Patient is not in any distress. Touching skin anywhere causes pain. Lungs clear to auscultation. Abdomen is soft nontender with normoactive bowel sounds. Offered workup he even COVID testing but does not want anything to be done but symptomatic relief. She is given symptomatic treatment for pain, reevaluation feeling better. She is advised to continue with her Neurontin and other medications. Discussed signs symptoms of worsening needing return to ER which she seems understanding. Stable for discharge. Allergies/Adverse Reactions: morphine Allergy (Verified 02/22/24 22:04) Home Medications: Cetirizine HCl [Allergy Relief] 10 mg PO DAILY 06/24/19 [History] Montelukast Sodium 10 mg PO DAILY 06/24/19 [History] Levothyroxine Sodium 25 Mcg [Synthroid 25 Mcg] 75 mcg PO DAILY 02/12/21 [History] hydrOXYzine HCL [Hydroxyzine HCl] 50 mg PO DAILY 02/12/21 [History] Venlafaxine HCl [Venlafaxine HCl ER] 225 mg PO DAILY 09/04/22 [History] Meloxicam 7.5 mg PO DAILY 08/25/23 [History] Gabapentin 100 mg PO TID 02/22/24 [History] Hx Tetanus, Diphtheria Vaccination/Date Given: (unknown) Hx Influenza Vaccination/Date Given: No Hx Pneumococcal Vaccination/Date Given: No Immunizations Up to Date: Yes Travel Risk - International Travel Have you traveled outside of the country in past 3 weeks: No - Emerging Infectious Disease Are you exhibiting symptoms associated with any current EIDs: Yes Symptoms: Headaches/Body Aches/, Joint Pain - Review of Systems Constitutional: No Symptoms Eyes: No Symptoms Ears, Nose, & Throat: No Symptoms Respiratory: No Symptoms Cardiac: No Symptoms Abdominal/Gastrointestinal: No Symptoms Musculoskeletal: Myalgias Skin: No Symptoms Neurological: No Symptoms Endocrine: No Symptoms Hematologic/Lymphatic: No Symptoms - Past Medical History Pertinent Past Medical History: Yes Neurological History: Migraines ENT History: No Pertinent History Cardiac History: No Pertinent History Respiratory History: Asthma Endocrine Medical History: Hypothyroidism Musculoskeletal History: No Pertinent History GI Medical History: GERD History: No Pertinent History Psycho-Social History: Anxiety, Depression Female Reproductive Disorders: Other Other Medical History: PREVIOUS HYPOTHYROIDSM THAT HAS RESOLVED. - Past Surgical History Past Surgical History: Yes Neuro Surgical History: No Pertinent History Cardiac: No Pertinent History Respiratory: No Pertinent History Gastrointestinal: Cholecystectomy, Other Genitourinary: No Pertinent History Musculoskeletal: No Pertinent History Female Surgical History: No Pertinent History Other Surgical History: EGD Significant Family History: MIGRANES - Female History Hx Last Menstrual Period: 02/15/24 Hx Now: No - Social History Smoking Status: Never smoker Exposure to second hand smoke: No Drug Use: none Patient Lives Alone: No - Social Determinants of Health Do you worry about a steady place to live?: No Do you have any problems with any of the following?: No known problems In the past 12 months,have you had to go without utilities?: No Transportation Issues: No Has anyone in your support network made you feel unsafe?: No Have you or anyone in your house had to go without enough: No - Nursing Vital Signs Nursing Vital Signs: Initial Vital Signs Temperature 98.3 F 02/22/24 22:17 Pulse Rate 107 H 02/22/24 22:17 Respiratory Rate 14 02/22/24 22:17 Blood Pressure 133/98 02/22/24 22:17 O2 Sat by Pulse Oximetry 95 02/22/24 22:17 Pain Scale Pain Intensity [Generalized] 8 Pain Intensity 8 - Physical Exam General Appearance: no apparent distress, alert Eye Exam: PERRL/EOMI Ears, Nose, Throat Exam: normal ENT inspection Neck Exam: normal inspection, full range of motion Respiratory Exam: normal breath sounds, lungs clear Cardiovascular Exam: regular rate/rhythm, normal heart sounds Gastrointestinal/Abdomen Exam: soft, normal bowel sounds, No tenderness Back Exam: normal inspection, normal range of motion Extremity Exam: normal inspection, normal range of motion Neurologic Exam: alert, oriented x 3, cooperative Skin Exam: normal color SpO2 Interpretation: normal SpO2: 97 O2 Delivery: Room Air Ordered Tests: Medication Summary Discontinued Medications Generic Name Dose Route Start Last Admin Trade Name Ana PRN Reason Stop Dose Admin Hydromorphone HCl 1 mg 02/22/24 22:40 02/22/24 22:48 Hydromorphone 1 Mg/1ml Inj IM 02/22/24 22:41 1 mg STAT ONE Administration Hydromorphone HCl Confirm 02/22/24 22:43 Hydromorphone 1 Mg/1ml Inj Administered 02/22/24 22:44 Dose 1 mg .ROUTE .[employer]-MED ONE - Progress Progress: improved Progress Note: 02/22/24 23:29 29-year-old presented in the ER with complaints of aches and pains all over. Patient reports she has been following up with rheumatology and is in the process of getting a diagnosis. Patient reports off-and-on she has this flareup where she is having aches and pains all over and even her clothes touching her skin causes pain. Usually it gets better after taking Tylenol/Aleve but this time she is having pain constantly since yesterday. No fever or chills reported. No swelling of the joints. No known sick contact. Patient is not in any distress. Touching skin anywhere causes pain. Lungs clear to auscultation. Abdomen is soft nontender with normoactive bowel sounds. Offered workup he even COVID testing but does not want anything to be done but symptomatic relief. She is given symptomatic treatment for pain, reevaluation feeling better. She is advised to continue with her Neurontin and other medications. Discussed signs symptoms of worsening needing return to ER which she seems understanding. Stable for discharge. Counseled pt/family regarding: diagnosis Medical Desision Making - Diagnostic Testing Diagnostic test were ordered, analyzed, and reviewed by me: No - Risk of complications The pt has a mod risk of morbidity or mortality based on: Need for prescription drug management - Departure Departure Disposition: Home Clinical Impression: Musculoskeletal pain Condition: Stable Critical Care Time: No Referrals: VANESSA JAIN [Primary Care Provider] - Follow up with PCP 1 day Instructions: Chronic Pain (DC) Additional Instructions: Continue with your current medications. Follow-up with your primary care and rheumatology for reevaluation. Return to ER for worsening.
[2024-02-22 23:39] VITALS: BP 144/105; PULSE 110; RESP 13
== END 2024-02-22 23:48 | disposition home or self-care (01) ==
LOC: ED 21:42
DX: M79.18 Myalgia, other site (principal); Z79.899 Other long term (current) drug therapy
CPT/HCPCS: 96372; 99283; J1170

== ENCOUNTER 2024-04-28 04:46 | Emergency (ER) | payer OTHER ==
[2024-04-28 05:00] VITALS: RESP 18; TEMP 97.2
[2024-04-28] MEDS ORDERED: Zofran 4 MG/2 ML VIAL ONE (05:30)
[2024-04-28] MEDS ORDERED: SUBLIMAZE 100 MCG/2 ML ONE (05:31)
[2024-04-28] MEDS: Zofran 4 MG/2 ML VIAL IV ONE (05:32)
[2024-04-28 05:33] LABS: Absolute Neutrophil Ct (ANC) 12.33 x10^3/uL (1.56-6.13); BASOPHIL % 0.4 % (0.1-1.2); Basophil (Absolute #) 0.06 x10^3/uL (0.01-0.08); Eosinophil % 0.5 % (0.7-5.8); Eosinophil (Absolute #) 0.08 x10^3/uL (0.04-0.36); Hematocrit 42.3 % (34.1-44.9); Hemoglobin 14.1 g/dL (11.2-15.7); IMMATURE GRAN # 0.08 x10^3u/L (0.001-0.031); IMMATURE GRAN % 0.5 % (0.001-0.429); Lymphocyte (Absolute #) 2.36 x10^3/uL (1.18-3.74); Lymphocytes % 14.9 % (19.3-51.7); Mean Cell Volume 83.9 fL (79.4-94.8); Mean Corpuscular Hgb Concent. 33.3 g/dL (32.2-35.5); Mean Platelet Volume 10.6 fL (9.4-12.3); Monocytes % 5.7 % (4.7-12.5); Platelet Count 358 x10^3/uL (182-369); Red Blood Count 5.04 x10^6/uL (3.93-5.22); Red Cell Distribution Width 14.9 % (11.7-14.4); White Blood Count 15.8 x10^3/uL (3.98-10.04)
[2024-04-28] MEDS: SUBLIMAZE 100 MCG/2 ML IV ONE (05:37)
[2024-04-28 05:44] LABS: HCG SERUM TEST NEGATIVE (NEGATIVE)
[2024-04-28 05:51] LABS: ALBUMIN 4.1 g/dL (3.5-5.0); ANION GAP 14.1 MEQ/L (5-15); BILIRUBIN,TOTAL 0.5 mg/dL (0.2-1.3); Calcium 9.3 mg/dL (8.4-10.2); Creatinine 1 0.8 mg/dL (0.52-1.04); EST GLOMERULAR FILTRATION RATE 102.2 ML/MIN; Potassium 3.7 mmol/L (3.5-5.1); Total Protein 7.3 g/dL (6.3-8.2)
[2024-04-28 06:08] LABS: Appearance Cloudy (Clear); Bacteria Few /HPF (None Seen); Bilirubin Negative (Negative); Blood Small (Negative); Epithelial Cells Few /HPF (None Seen); Glucose, Urine Negative (Negative); Ketones Trace (Negative); Leukocyte Esterase Negative (Negative); Nitrite Negative (Negative); Ph 5.5 (4.6-8.0); Protein,Urine Dip Trace (Negative); RBC 0-2 /HPF (0-5); Specific Gravity 1.025 (1.005-1.030)
[2024-04-28] MEDS ORDERED: Sodium Chloride 0.9% 1000 ML 1,000 ML ONE (06:39)
--- NOTE | 2024-04-28 06:40 | ERPHSYRPT ---
- History of Present Illness Historian: patient Exam Limitations: no limitations Patient Subjective Stated Complaint: abd pain, vomiting Triage Nursing Assessment: Pt drove self to the hospital and ambulated into ER 6 without diff. Pt is alert and oriented x4. Pt c/o upper abd pain bilat and vomiting. Pt states, "the pain woke me up from sleep around 2am and I have vo mited approx 6 times". Abd lg, obese with active bs x4 quad, tender to mid upper abd area, and the pain radiates to mid back region bilat. LBM 04/27/24. Activities at Onset: sleep Quality: aching, cramping, sharpness Abdominal Pain Onset Location: RUQ, LUQ Pain Radiation: no radiation Modifying Factors: Improves With: nothing Associated Symptoms: denies symptoms Hx Tetanus, Diphtheria Vaccination/Date Given: (does not know) Hx Influenza Vaccination/Date Given: No Hx Pneumococcal Vaccination/Date Given: No <LONNIE GABRIEL - Last Filed: 04/28/24 06:52> <DEBORAH BAUTISTA - Last Filed: 04/28/24 08:34> - History of Present Illness Physician History: Patient has abdominal pain. It is in the upper abdomen. It is intense. It woke her up. She has vomited 5 or 6 times. She has not had any diarrhea. The pain remains in the upper abdomen. She had her gallbladder removed. She says the pain feels somewhat like that. Nothing really makes it better or worse. Is only been going on a couple hours now.Her emesis is not bilious or bloody. She does not have any other symptoms right now. She does not have a fever or cough or dysuria. (LONNIE GABRIEL) Allergies/Adverse Reactions: morphine Allergy (Verified 04/28/24 05:08) Home Medications: Cetirizine HCl [Allergy Relief] 10 mg PO DAILY 06/24/19 [History] Montelukast Sodium 10 mg PO DAILY 06/24/19 [History] Levothyroxine Sodium 25 Mcg [Synthroid 25 Mcg] 100 mcg PO DAILY 02/12/21 [History] hydrOXYzine HCL [Hydroxyzine HCl] 25 - 50 mg PO DAILY PRN PRN 02/12/21 [History] Venlafaxine HCl [Venlafaxine HCl ER] 225 mg PO DAILY 09/04/22 [History] Gabapentin 100 mg PO TID 02/22/24 [History] Travel Risk - International Travel Have you traveled outside of the country in past 3 weeks: No - Emerging Infectious Disease Are you exhibiting symptoms associated with any current EIDs: Yes Symptoms: Abdominal Pain, Vomitting <LONNIE GABRIEL - Last Filed: 04/28/24 06:52> - Review of Systems Constitutional: No Symptoms Eyes: No Symptoms Ears, Nose, & Throat: No Symptoms Respiratory: No Symptoms Cardiac: No Symptoms Abdominal/Gastrointestinal: Abdominal Pain, Nausea, Vomiting Genitourinary Symptoms: No Symptoms Musculoskeletal: No Symptoms Skin: No Symptoms Neurological: No Symptoms All Other Systems: Reviewed and Negative <LONNIE GABRIEL - Last Filed: 04/28/24 06:52> - Past Medical History Pertinent Past Medical History: Yes Neurological History: Migraines ENT History: No Pertinent History Cardiac History: No Pertinent History Respiratory History: Asthma Endocrine Medical History: Hypothyroidism Musculoskeletal History: No Pertinent History GI Medical History: GERD, Gallbladder Disease History: No Pertinent History Psycho-Social History: Anxiety, Depression Female Reproductive Disorders: Other Other Medical History: PREVIOUS HYPOTHYROIDSM THAT HAS RESOLVED. - Past Surgical History Past Surgical History: Yes Neuro Surgical History: No Pertinent History Cardiac: No Pertinent History Respiratory: No Pertinent History Gastrointestinal: Cholecystectomy, Other Genitourinary: No Pertinent History Musculoskeletal: No Pertinent History Female Surgical History: No Pertinent History Other Surgical History: EGD Significant Family History: MIGRANES - Female History Hx Last Menstrual Period: 2 weeks ago Hx Now: No - Social History Smoking Status: Never smoker Exposure to second hand smoke: No Drug Use: none Patient Lives Alone: No - Social Determinants of Health Will the patient participate in the screening: Yes Do you worry about a steady place to live?: No Do you have any problems with any of the following?: No known problems In the past 12 months,have you had to go without utilities?: No Transportation Issues: No Has anyone in your support network made you feel unsafe?: No Have you or anyone in your house had to go without enough: No <LONNIE GABRIEL - Last Filed: 04/28/24 06:52> - Physical Exam General Appearance: no apparent distress Eye Exam: PERRL/EOMI Ears, Nose, Throat Exam: normal ENT inspection Respiratory Exam: normal breath sounds, lungs clear, No chest tenderness, No respiratory distress Cardiovascular Exam: regular rate/rhythm, tachycardia Gastrointestinal/Abdomen Exam: soft, normal bowel sounds, tenderness (Upper abdomen bilaterally), No distention, No mass Neurologic Exam: alert, oriented x 3 Skin Exam: normal color, warm SpO2: 93 <LONNIE GABRIEL S. - Last Filed: 04/28/24 06:52> - Nursing Vital Signs Nursing Vital Signs: Initial Vital Signs Temperature 97.2 F 04/28/24 04:58 Pulse Rate 124 H 04/28/24 04:58 Respiratory Rate 18 04/28/24 04:58 Blood Pressure 141/88 04/28/24 04:58 O2 Sat by Pulse Oximetry 97 04/28/24 04:58 Pain Scale Pain Intensity 2 Ordered Tests: Active Orders 24 hr Category Date Time Status ABDOMEN AND PELVIS W CONTRAST [CT] Stat Exams 04/28/24 06:35 Completed CBC W DIFF Stat Lab 04/28/24 05:32 Completed CMP Stat Lab 04/28/24 05:32 Completed CULTURE,URINE Stat Lab 04/28/24 05:27 Received HCG QUALITATIVE, SERUM Stat Lab 04/28/24 05:32 Completed LIPASE Stat Lab 04/28/24 05:32 Completed UA W/RFX UR CULTURE Stat Lab 04/28/24 05:27 Completed Medication Summary Discontinued Medications Generic Name Dose Route Start Last Admin Trade Name Ana PRN Reason Stop Dose Admin Fentanyl Citrate 100 mcg 04/28/24 05:26 04/28/24 05:37 Fentanyl Citrate 100 Mcg/2 Ml* Vial IV 04/28/24 05:27 100 mcg STAT ONE Administration Fentanyl Citrate Confirm 04/28/24 05:31 Fentanyl Citrate 100 Mcg/2 Ml* Vial Administered 04/28/24 05:32 Dose 100 mcg .ROUTE .STK-MED ONE Sodium Chloride 1,000 mls @ 999 mls/hr 04/28/24 06:38 04/28/24 07:45 Sodium Chloride 0.9% 1000 Ml IV 04/28/24 07:38 Infused .Q1H1M STA Infusion Sodium Chloride Confirm 04/28/24 06:39 Sodium Chloride 0.9% 1000 Ml Administered 04/28/24 06:40 Dose 1,000 mls @ ud .ROUTE .STK-MED ONE Ondansetron HCl 4 mg 04/28/24 05:25 04/28/24 05:32 Ondansetron Hcl 4 Mg/2 Ml Vial IV 04/28/24 05:26 4 mg STAT ONE Administration Ondansetron HCl Confirm 04/28/24 05:30 Ondansetron Hcl 4 Mg/2 Ml Vial Administered 04/28/24 05:31 Dose 4 mg .ROUTE .STK-MED ONE Lab/Rad Data: Laboratory Result Diagrams 04/28/24 05:32 04/28/24 05:32 Laboratory Results 04/28/24 04/28/24 04/28/24 Range/Units 05:32 05:32 05:32 WBC 15.8 H (3.98-10.04) x10^3/uL RBC 5.04 (3.93-5.22) x10^6/uL Hgb 14.1 (11.2-15.7) g/dL Hct 42.3 (34.1-44.9) % MCV 83.9 (79.4-94.8) fL MCH 28.0 (25.6-32.2) pg MCHC 33.3 (32.2-35.5) g/dL RDW 14.9 H (11.7-14.4) % Plt Count 358 (182-369) x10^3/uL MPV 10.6 (9.4-12.3) fL Gran % 78.0 H (34.0-71.1) % Immature Gran % (Auto) 0.5 H (0.001-0.429) % Nucleat RBC Rel Count 0.0 (0.00-0.2) % Eos # (Auto) 0.08 (0.04-0.36) x10^3/uL Immature Gran # (Auto) 0.08 H (0.001-0.031) x10^3u/L Absolute Lymphs (auto) 2.36 (1.18-3.74) x10^3/uL Absolute Monos (auto) 0.90 H (0.24-0.86) x10^3/uL Absolute Nucleated RBC 0.00 (0.00-0.012) x10^3u/L Lymphocytes % 14.9 L (19.3-51.7) % Monocytes % 5.7 (4.7-12.5) % Eosinophils % 0.5 L (0.7-5.8) % Basophils % 0.4 (0.1-1.2) % Absolute Granulocytes 12.33 H (1.56-6.13) x10^3/uL Basophils # 0.06 (0.01-0.08) x10^3/uL Sodium 138 (135-145) mmol/L Potassium 3.7 (3.5-5.1) mmol/L Chloride 106 (98-107) mmol/L Carbon Dioxide 21 L (22-30) mmol/L Anion Gap 14.1 (5-15) MEQ/L BUN 13 (7-17) mg/dL Creatinine 0.80 (0.52-1.04) mg/dL Estimated GFR 102.2 ML/MIN Glucose 121 H (74-106) mg/dL Calcium 9.3 (8.4-10.2) mg/dL Total Bilirubin 0.50 (0.2-1.3) mg/dL AST 32 (14-36) U/L ALT 30 (0-35) U/L Alkaline Phosphatase 77 (38-126) U/L Serum Total Protein 7.3 (6.3-8.2) g/dL Albumin 4.1 (3.5-5.0) g/dL Lipase 84 (23-300) U/L Serum HCG, Qual NEGATIVE (NEGATIVE) Urine Color (Yellow) Urine Appearance (Clear) Urine pH (4.6-8.0) Ur Specific [place] (1.005-1.030) Urine Protein (Negative) Urine Glucose (UA) (Negative) mg/dL Urine Ketones (Negative) Urine Blood (Negative) Urine Nitrite (Negative) Urine Bilirubin (Negative) Urine Urobilinogen (0.2) mg/dL Ur Leukocyte Esterase (Negative) U Hyaline Cast (Auto) (0-2) /LPF Urine Microscopic RBC (0-5) /HPF Urine Microscopic WBC (0-5) /HPF Ur Epithelial Cells (None Seen) /HPF Urine Bacteria (None Seen) /HPF Urine Culture Reflexed (NO) 04/28/24 Range/Units 05:27 WBC (3.98-10.04) x10^3/uL RBC (3.93-5.22) x10^6/uL Hgb (11.2-15.7) g/dL Hct (34.1-44.9) % MCV (79.4-94.8) fL MCH (25.6-32.2) pg MCHC (32.2-35.5) g/dL RDW (11.7-14.4) % Plt Count (182-369) x10^3/uL MPV (9.4-12.3) fL Gran % (34.0-71.1) % Immature Gran % (Auto) (0.001-0.429) % Nucleat RBC Rel Count (0.00-0.2) % Eos # (Auto) (0.04-0.36) x10^3/uL Immature Gran # (Auto) (0.001-0.031) x10^3u/L Absolute Lymphs (auto) (1.18-3.74) x10^3/uL Absolute Monos (auto) (0.24-0.86) x10^3/uL Absolute Nucleated RBC (0.00-0.012) x10^3u/L Lymphocytes % (19.3-51.7) % Monocytes % (4.7-12.5) % Eosinophils % (0.7-5.8) % Basophils % (0.1-1.2) % Absolute Granulocytes (1.56-6.13) x10^3/uL Basophils # (0.01-0.08) x10^3/uL Sodium (135-145) mmol/L Potassium (3.5-5.1) mmol/L Chloride (98-107) mmol/L Carbon Dioxide (22-30) mmol/L Anion Gap (5-15) MEQ/L BUN (7-17) mg/dL Creatinine (0.52-1.04) mg/dL Estimated GFR ML/MIN Glucose (74-106) mg/dL Calcium (8.4-10.2) mg/dL Total Bilirubin (0.2-1.3) mg/dL AST (14-36) U/L ALT (0-35) U/L Alkaline Phosphatase (38-126) U/L Serum Total Protein (6.3-8.2) g/dL Albumin (3.5-5.0) g/dL Lipase (23-300) U/L Serum HCG, Qual (NEGATIVE) Urine Color Dark Yellow A (Yellow) Urine Appearance Cloudy A (Clear) Urine pH 5.5 (4.6-8.0) Ur Specific [place] 1.025 (1.005-1.030) Urine Protein Trace A (Negative) Urine Glucose (UA) Negative (Negative) mg/dL Urine Ketones Trace A (Negative) Urine Blood Small A (Negative) Urine Nitrite Negative (Negative) Urine Bilirubin Negative (Negative) Urine Urobilinogen 1.0 A (0.2) mg/dL Ur Leukocyte Esterase Negative (Negative) U Hyaline Cast (Auto) 3-5 A (0-2) /LPF Urine Microscopic RBC 0-2 (0-5) /HPF Urine Microscopic WBC 6-10 A (0-5) /HPF Ur Epithelial Cells Few (None Seen) /HPF Urine Bacteria Few A (None Seen) /HPF Urine Culture Reflexed YES (NO) - Progress Progress: improved <LONNIE GABRIEL - Last Filed: 04/28/24 06:52> - Progress Counseled pt/family regarding: lab results, diagnosis, need for follow-up, rad results <DEBORAH BAUTISTA - Last Filed: 04/28/24 08:34> - Progress Progress Note: 11/The pain medicine helped. On the differential was intra-abdominal infection, pyelonephritis, gastroenteritis, pancreatitis, bowel obstruction. She was tachycardic so I started a liter of fluids on her. Because of her white count and going to get a CT. I am going to turn the patient over to Dr. Bautista. (LONNIE GABRIEL) 04/28/24 08:07 Assumed care at [address] pending. Abd pain improved. CT scan shows signs of duodenitis and small left renal stone in upper pole of kidney. Will dc home with Omeprazole 40mg BID and recommend close follow up with Dr. Jain to discuss EGD and possible H. Pylori biopsy. (DEBORAH BAUTISTA) Medical Desision Making - Diagnostic Testing Diagnostic test were ordered, analyzed, and reviewed by me: Yes Radiological Interpretation: Interpreted by me, Reviewed by me, Teleradiologist Report - Risk of complications The pt has a mod risk of morbidity or mortality based on: Need for prescription drug management <DEBORAH BAUTISTA - Last Filed: 04/28/24 08:34> - Departure Critical Care Time: No <LONNIE GABRIEL - Last Filed: 04/28/24 06:52> - Departure Departure Disposition: Home Critical Care Time: No <DEBORAH BAUTISTA - Last Filed: 04/28/24 08:34> - Departure Clinical Impression: Abdominal pain, Duodenitis Condition: Good Referrals: VANESSA JAIN [Primary Care Provider] - Follow up/PCP as directed Instructions: Dyspepsia (DC) Prescriptions: Omeprazole 40 mg PO BID 30 Days #60 cap
[2024-04-28] MEDS: Sodium Chloride 0.9% 1000 ML 1,000 ML IV STA (06:41)
[2024-04-28 07:10] VITALS: PULSE 96
--- NOTE | 2024-04-28 08:02 | XRAY ---
CLINICAL HISTORY: abd pain COMPARISON: 08/25/2023 TECHNIQUE: A CT scan of the abdomen and pelvis was performed with IV contrast. Coronal and sagittal reconstructive images were also obtained. One of the following dose reduction techniques was utilized for this exam: Automated exposure control, adjustment of the mA and/or kV according to patient size, use of iterative reconstruction FINDINGS: The gastric antrum and the three parts of the duodenum all shows circumferential wall thickening (submucosal edema) with surrounding fatty stranding. Though the pancreas shows no significant abnormality or surrounding inflammatory changes the pancreaticoduodenal groove is edematous with fat stranding. This is further evidenced by infiltration of the anterior pararenal space (retroperitoneal space) extending inferiorly into the extraperitoneal pelvic spaces. Mild right iliac-free fluid noted. The liver is normal in size. No focal or diffuse parenchymal abnormality. The portal vein, intrahepatic biliary radicals and the bile ducts are normal. The gall bladder is surgically removed. The unremarkable appearance of the spleen and adrenal glands. The kidneys are average in size and normal in shape. No cysts or hydronephrosis. A 3 mm calculus is seen in the left upper calyceal system. No suspiciously enlarged retroperitoneal lymph nodes. No significant intraperitoneal free fluid. The large bowel and small bowel are average in caliber with no evidence of obstruction. The appendix couldn't be distinctively seen. The urinary bladder is only partially filled. The uterus is grossly unremarkable. No gross ovarian or adnexal lesions. The osseous structures in the pelvis, lower rib cage and lumbar spine show no abnormality. No lytic or sclerotic bone lesions. Scanned lung bases are grossly unremarkable. IMPRESSION: 1. CT findings are impressive of duodenitis with groove pancreatitis, clinical correlation is needed. 2. Left renal non-obstructing calculus (stable). Electronically Signed by: Higinio Castro MD. (04/28/2024 07:57:33 EST)
[2024-04-28 08:42] VITALS: BP 120/80; O2SAT 95
== END 2024-04-28 08:46 | disposition home or self-care (01) ==
LOC: ED 04:46
DX: K29.80 Duodenitis without bleeding (principal); R10.10 Upper abdominal pain, unspecified; R11.2 Nausea with vomiting, unspecified; Z79.899 Other long term (current) drug therapy
CPT/HCPCS: 36000; 36415; 74177; 80053; 81001; 83690; 84703; 85025; 87086; 96360; 96374; 96375; 99284; 99285; J2405; J3010

== ENCOUNTER 2024-05-10 07:17 | Emergency (ER) | payer OTHER ==
[2024-05-10 07:34] VITALS: TEMP 98.6
--- NOTE | 2024-05-10 07:37 | ERPHSYRPT ---
- History of Present Illness Time Seen by Provider: 05/10/24 07:36 Source: patient Exam Limitations: no limitations Patient Subjective Stated Complaint: pt c/o of SOB and dizziness, pt was diagnosed yesterday from [facility] care with a DVT and was placed on eliquis Triage Nursing Assessment: Pt was brought to the ER by her mother, hypertensive, tachycardic, denies pain, pulses normal, reports SOB, skin n/w/d, doesn't appear to be in any distress Physician History: This is an overweight 29-year-old white female patient of Dr. Field who was diagnosed with a left lower extremity DVT and started on Eliquis yesterday. T his morning, approximately 6:30 AM, patient complained of dizziness, shortness of breath and arrived to the emergency department by private vehicle with hypertension and tachycardia. She denies chest pain. Patient does have a history of hypertension and started on lisinopril within the last 2 weeks. She did not take her blood pressure medication this morning. Patient does have a history of anxiety and panic disorder. Patient is concerned about her child now that she is a single parent. Her in August 2023. Patient has a history of migraine headaches, asthma, hypothyroidism, hypertension, anxiety and depression. Patient does not have a fever. She does not have a cough. She has had no hemoptysis. Patient's room air oxygen saturation level is 99%. Timing/Duration: today Severity: mild (To moderate) Character of Deficits: none Deficits: no difficulties Baseline/Normal Cognition: alert oriented x 3 Current Cognition: alert oriented x 3 Baseline Gait: walks w/o assistance Associated Symptoms: denies symptoms, No fever, No weakness, No vision changes, No chest pain Allergies/Adverse Reactions: morphine Allergy (Verified 05/10/24 07:34) Home Medications: Cetirizine HCl [Allergy Relief] 10 mg PO DAILY 06/24/19 [History] Montelukast Sodium 10 mg PO DAILY 06/24/19 [History] Levothyroxine Sodium 25 Mcg [Synthroid 25 Mcg] 100 mcg PO DAILY 02/12/21 [History] hydrOXYzine HCL [Hydroxyzine HCl] 25 - 50 mg PO DAILY PRN PRN 02/12/21 [History] Venlafaxine HCl [Venlafaxine HCl ER] 225 mg PO DAILY 09/04/22 [History] Gabapentin 100 mg PO TID 02/22/24 [History] lisinopriL [Lisinopril] 5 mg PO UD 05/06/24 [History] Apixaban [Eliquis] 10 mg PO BID 05/10/24 [History] Hx Tetanus, Diphtheria Vaccination/Date Given: (does not know) Hx Influenza Vaccination/Date Given: No Hx Pneumococcal Vaccination/Date Given: No Travel Risk - International Travel Have you traveled outside of the country in past 3 weeks: No - Emerging Infectious Disease Are you exhibiting symptoms associated with any current EIDs: No Symptoms: Abdominal Pain, Vomitting - Review of Systems Constitutional: No Symptoms Eyes: No Symptoms Ears, Nose, & Throat: No Symptoms Respiratory: Dyspnea Cardiac: No Symptoms, No Chest Pain Abdominal/Gastrointestinal: No Symptoms Genitourinary Symptoms: No Symptoms Musculoskeletal: No Symptoms Skin: No Symptoms Neurological: Dizziness Psychological: No Symptoms Endocrine: No Symptoms Hematologic/Lymphatic: No Symptoms Immunological/Allergic: No Symptoms All Other Systems: Reviewed and Negative - Past Medical History Pertinent Past Medical History: Yes Neurological History: Migraines ENT History: No Pertinent History Cardiac History: Hypertension Respiratory History: Asthma Endocrine Medical History: Hypothyroidism Musculoskeletal History: No Pertinent History GI Medical History: GERD, Gallbladder Disease History: No Pertinent History Psycho-Social History: Anxiety, Depression Female Reproductive Disorders: Other Other Medical History: PREVIOUS HYPOTHYROIDSM THAT HAS RESOLVED. - Past Surgical History Past Surgical History: Yes Neuro Surgical History: No Pertinent History Cardiac: No Pertinent History Respiratory: No Pertinent History Gastrointestinal: Cholecystectomy, Other Genitourinary: No Pertinent History Musculoskeletal: No Pertinent History Female Surgical History: No Pertinent History Other Surgical History: EGD Significant Family History: MIGRANES - Female History Hx Last Menstrual Period: 05/05/2024 Hx Now: No - Social History Smoking Status: Never smoker Exposure to second hand smoke: No Drug Use: none Patient Lives Alone: No - Social Determinants of Health Will the patient participate in the screening: Yes Do you worry about a steady place to live?: No Do you have any problems with any of the following?: No known problems In the past 12 months,have you had to go without utilities?: No Transportation Issues: No Has anyone in your support network made you feel unsafe?: No Have you or anyone in your house had to go without enough: No - Nursing Vital Signs Nursing Vital Signs: Initial Vital Signs Temperature 98.6 F 05/10/24 07:26 Pulse Rate 106 H 05/10/24 07:26 Blood Pressure 180/110 05/10/24 07:26 O2 Sat by Pulse Oximetry 97 05/10/24 07:26 Pain Scale Pain Intensity 0 - Zuly Coma Scale Best Eye Response (Zuly): (4) open spontaneously Best Verbal Response (Zuly): (5) oriented Best Motor Response (Zuly): (6) obeys commands Zuly Total: 15 - Physical Exam General Appearance: no apparent distress, alert, anxiety, obese Eye Exam: bilateral eye: normal inspection, PERRL, EOMI Ears, Nose, Throat Exam: normal ENT inspection, moist mucous membranes Neck Exam: normal inspection, non-tender, supple, full range of motion Respiratory: normal breath sounds, lungs clear, No chest tenderness, No respiratory distress Cardiovascular: regular rate/rhythm, normal heart sounds, normal peripheral pulses Gastrointestinal: soft, normal bowel sounds, No tenderness Pelvic Exam: not done Rectal Exam: not done Back Exam: normal inspection, normal range of motion, No CVA tenderness, No vertebral tenderness Extremity Exam: normal inspection, normal range of motion, pelvis stable Mental Status: alert, oriented x 3, cooperative guest services attendant Exam: normal hearing, normal speech, PERRL Coordination/Gait: normal finger to nose, normal gait, normal cerebellar function Motor/Sensory: no motor deficit Skin Exam: normal color, warm, dry SpO2 Interpretation: normal SpO2: 97 O2 Delivery: Room Air - Course Nursing assessment & vital signs reviewed: Yes EKG Interpreted by Me: RATE (97), Sinus Rhythm, NORMAL AXIS, NORMAL INTERVALS, NORMAL QRS, Other (No acute ischemic changes on today's twelve-lead EKG. QTc is 432) Ordered Tests: Active Orders 24 hr Category Date Time Status Otr Tanker Truck Driver STAT Care 05/10/24 07:39 Active EKG-ER Only STAT Care 05/10/24 07:37 Active IV Insertion STAT Care 05/10/24 07:37 Active CHEST WITH CONTRAST [CT] Stat Exams 05/10/24 07:41 Completed HEAD WITHOUT CONTRAST [CT] Stat Exams 05/10/24 07:38 Completed CBC W DIFF Stat Lab 05/10/24 08:08 Completed CMP Stat Lab 05/10/24 08:08 Completed HCG QUALITATIVE, SERUM Stat Lab 05/10/24 08:08 Completed MAGNESIUM Stat Lab 05/10/24 08:08 Completed TROPONIN Q4H Lab 05/10/24 08:08 Completed TROPONIN Q4H Lab 05/10/24 11:45 Ordered TROPONIN Q4H Lab 05/10/24 15:45 Ordered TSH, 3RD Generation Stat Lab 05/10/24 08:08 Completed UA W/RFX UR CULTURE Stat Lab 05/10/24 07:49 Completed Medication Summary Generic Name Dose Route Start Last Admin Trade Name Freq PRN Reason Stop Dose Admin Sodium Chloride 250 mls @ 250 mls/hr 05/10/24 08:00 05/10/24 09:00 Sodium Chloride 0.9% 250 Ml IV 05/10/24 08:59 Infused .Q1H BELKYS Infusion Discontinued Medications Generic Name Dose Route Start Last Admin Trade Name Freq PRN Reason Stop Dose Admin Sodium Chloride 500 mls @ 500 mls/hr 05/10/24 07:42 05/10/24 07:56 Sodium Chloride 0.9% 500 Ml IV 05/10/24 08:41 Not Given .Q1H ONE Lab/Rad Data: Laboratory Result Diagrams 05/10/24 08:08 05/10/24 08:08 Laboratory Results 05/10/24 05/10/24 05/10/24 Range/Units 08:08 08:08 08:08 WBC (3.98-10.04) x10^3/uL RBC (3.93-5.22) x10^6/uL Hgb (11.2-15.7) g/dL Hct (34.1-44.9) % MCV (79.4-94.8) fL MCH (25.6-32.2) pg MCHC (32.2-35.5) g/dL RDW (11.7-14.4) % Plt Count (182-369) x10^3/uL MPV (9.4-12.3) fL Gran % (34.0-71.1) % Immature Gran % (Auto) (0.001-0.429) % Nucleat RBC Rel Count (0.00-0.2) % Eos # (Auto) (0.04-0.36) x10^3/uL Immature Gran # (Auto) (0.001-0.031) x10^3u/L Absolute Lymphs (auto) (1.18-3.74) x10^3/uL Absolute Monos (auto) (0.24-0.86) x10^3/uL Absolute Nucleated RBC (0.00-0.012) x10^3u/L Lymphocytes % (19.3-51.7) % Monocytes % (4.7-12.5) % Eosinophils % (0.7-5.8) % Basophils % (0.1-1.2) % Absolute Granulocytes (1.56-6.13) x10^3/uL Basophils # (0.01-0.08) x10^3/uL Sodium (135-145) mmol/L Potassium (3.5-5.1) mmol/L Chloride (98-107) mmol/L Carbon Dioxide (22-30) mmol/L Anion Gap (5-15) MEQ/L BUN (7-17) mg/dL Creatinine (0.52-1.04) mg/dL Estimated GFR ML/MIN Glucose (74-106) mg/dL Calcium (8.4-10.2) mg/dL Magnesium (1.6-2.3) mg/dL Total Bilirubin (0.2-1.3) mg/dL AST (14-36) U/L ALT (0-35) U/L Alkaline Phosphatase (38-126) U/L Troponin I < 0.012 (0.000-0.033) ng/mL Serum Total Protein (6.3-8.2) g/dL Albumin (3.5-5.0) g/dL Free T4 0.93 (0.78-2.19) ng/dL TSH 3rd Generation (0.470-4.680) mIU/L Serum HCG, Qual NEGATIVE (NEGATIVE) Urine Color (Yellow) Urine Appearance (Clear) Urine pH (4.6-8.0) Ur Specific [place] (1.005-1.030) Urine Protein (Negative) Urine Glucose (UA) (Negative) mg/dL Urine Ketones (Negative) Urine Blood (Negative) Urine Nitrite (Negative) Urine Bilirubin (Negative) Urine Urobilinogen (0.2) mg/dL Ur Leukocyte Esterase (Negative) U Hyaline Cast (Auto) (0-2) /LPF Urine Microscopic RBC (0-5) /HPF Urine Microscopic WBC (0-5) /HPF Ur Epithelial Cells (None Seen) /HPF Urine Bacteria (None Seen) /HPF Urine Culture Reflexed (NO) 05/10/24 05/10/24 05/10/24 Range/Units 08:08 08:08 07:49 WBC 7.5 (3.98-10.04) x10^3/uL RBC 4.52 (3.93-5.22) x10^6/uL Hgb 12.5 (11.2-15.7) g/dL Hct 38.4 (34.1-44.9) % MCV 85.0 (79.4-94.8) fL MCH 27.7 (25.6-32.2) pg MCHC 32.6 (32.2-35.5) g/dL RDW 14.2 (11.7-14.4) % Plt Count 292 (182-369) x10^3/uL MPV 9.9 (9.4-12.3) fL Gran % 80.4 H (34.0-71.1) % Immature Gran % (Auto) 0.4 (0.001-0.429) % Nucleat RBC Rel Count 0.0 (0.00-0.2) % Eos # (Auto) 0.02 L (0.04-0.36) x10^3/uL Immature Gran # (Auto) 0.03 (0.001-0.031) x10^3u/L Absolute Lymphs (auto) 0.91 L (1.18-3.74) x10^3/uL Absolute Monos (auto) 0.48 (0.24-0.86) x10^3/uL Absolute Nucleated RBC 0.00 (0.00-0.012) x10^3u/L Lymphocytes % 12.2 L (19.3-51.7) % Monocytes % 6.4 (4.7-12.5) % Eosinophils % 0.3 L (0.7-5.8) % Basophils % 0.3 (0.1-1.2) % Absolute Granulocytes 6.02 (1.56-6.13) x10^3/uL Basophils # 0.02 (0.01-0.08) x10^3/uL Sodium 139 (135-145) mmol/L Potassium 4.1 (3.5-5.1) mmol/L Chloride 107 (98-107) mmol/L Carbon Dioxide 25 (22-30) mmol/L Anion Gap 11.2 (5-15) MEQ/L BUN 10 (7-17) mg/dL Creatinine 0.62 (0.52-1.04) mg/dL Estimated GFR 123.6 ML/MIN Glucose 126 H (74-106) mg/dL Calcium 9.8 (8.4-10.2) mg/dL Magnesium 1.7 (1.6-2.3) mg/dL Total Bilirubin 0.20 (0.2-1.3) mg/dL AST 21 (14-36) U/L ALT 23 (0-35) U/L Alkaline Phosphatase 65 (38-126) U/L Troponin I (0.000-0.033) ng/mL Serum Total Protein 7.1 (6.3-8.2) g/dL Albumin 4.1 (3.5-5.0) g/dL Free T4 (0.78-2.19) ng/dL TSH 3rd Generation 0.784 (0.470-4.680) mIU/L Serum HCG, Qual (NEGATIVE) Urine Color Yellow (Yellow) Urine Appearance Clear (Clear) Urine pH 7.0 (4.6-8.0) Ur Specific [place] 1.020 (1.005-1.030) Urine Protein Trace A (Negative) Urine Glucose (UA) Negative (Negative) mg/dL Urine Ketones Negative (Negative) Urine Blood Moderate A (Negative) Urine Nitrite Negative (Negative) Urine Bilirubin Negative (Negative) Urine Urobilinogen 0.2 (0.2) mg/dL Ur Leukocyte Esterase Negative (Negative) U Hyaline Cast (Auto) NONE SEEN (0-2) /LPF Urine Microscopic RBC 21-50 A (0-5) /HPF Urine Microscopic WBC 0-2 (0-5) /HPF Ur Epithelial Cells None Seen (None Seen) /HPF Urine Bacteria None Seen (None Seen) /HPF Urine Culture Reflexed NO (NO) - Progress Progress: improved, re-examined Progress Note: 05/10/24 08:15 My medical decision making and the assignment of moderate complexity to this patient's medical issue today is based on review of the patient's past medical history, review the patient's medication list, reviewed patient drug allergy list, history present illness and physical findings on examination. The workup in this patient includes placement of intravenous line, infusion of 250 mL of normal saline solution CBC, CMP, magnesium level, serum hCG, urinalysis, free T4 and TSH, twelve-lead EKG component level, CT scan of the head and CT scan of the chest with contrast. Differential diagnoses include but is not limited to acute intracranial abnormality, anxiety/panic disorder, electrolyte abnormality, arrhythmia, pneumonia, pulmonary embolus, myocardial infarction, urinary tract infection, dehydration 05/10/24 11:45 I interpreted the patient's laboratory data results. Based on the laboratory data results, the patient does not have any acute, emergent medical issue. Differential diagnosis includes but is not limited to acute intracranial abnormality, pulmonary embolus, myocardial infarction, electrolyte abnormalities, arrhythmia, urinary tract infection, dehydration CT scan of the head without contrast was interpreted by the radiologist and I reviewed the impression. The impression states normal CT scan of the head without contrast exam. CT scan of the chest with contrast was interpreted by the radiologist and I reviewed the impression. The impression states new tiny nonoccluding pulmonary emboli right upper and right lower lobes. No evidence of infarction. Counseled pt/family regarding: lab results, diagnosis, need for follow-up, rad results Medical Desision Making - Diagnostic Testing Diagnostic test were ordered, analyzed, and reviewed by me: Yes Radiological Interpretation: Reviewed by me, Teleradiologist Report - Risk of complications Low Risk: Low risk of morbidity from additional dx testing or treatment - Departure Departure Disposition: Home Clinical Impression: Pulmonary emboli Condition: Stable Critical Care Time: No Referrals: VANESSA FIELD [Primary Care Provider] - Follow up/PCP as directed Additional Instructions: Drink plenty of fluids. Continue your medication as prescribed. Call your prescribing provider today, 05/10/2024, to make arrangement for follow-up appointment to be seen in the next 3 days.
[2024-05-10] MEDS ORDERED: Sodium Chloride 0.9% 250 ML 250 ML IV ONE (07:53)
[2024-05-10] MEDS: Sodium Chloride 0.9% 250 ML 250 ML IV SCH (07:56)
[2024-05-10] MEDS: Sodium Chloride 0.9% 500 ML 500 ML IV ONE (07:56)
[2024-05-10 08:14] LABS: Absolute Neutrophil Ct (ANC) 6.02 x10^3/uL (1.56-6.13); BASOPHIL % 0.3 % (0.1-1.2); Basophil (Absolute #) 0.02 x10^3/uL (0.01-0.08); Eosinophil % 0.3 % (0.7-5.8); Eosinophil (Absolute #) 0.02 x10^3/uL (0.04-0.36); Hematocrit 38.4 % (34.1-44.9); Hemoglobin 12.5 g/dL (11.2-15.7); IMMATURE GRAN # 0.03 x10^3u/L (0.001-0.031); IMMATURE GRAN % 0.4 % (0.001-0.429); Lymphocyte (Absolute #) 0.91 x10^3/uL (1.18-3.74); Lymphocytes % 12.2 % (19.3-51.7); Mean Corpuscular Hemoglobin 27.7 pg (25.6-32.2); Mean Corpuscular Hgb Concent. 32.6 g/dL (32.2-35.5); Mean Platelet Volume 9.9 fL (9.4-12.3); Monocyte (Absolute #) 0.48 x10^3/uL (0.24-0.86); Monocytes % 6.4 % (4.7-12.5); Neutrophil % 80.4 % (34.0-71.1); Platelet Count 292 x10^3/uL (182-369); Red Blood Count 4.52 x10^6/uL (3.93-5.22); Red Cell Distribution Width 14.2 % (11.7-14.4); White Blood Count 7.5 x10^3/uL (3.98-10.04)
[2024-05-10 08:24] LABS: Appearance Clear (Clear); Bacteria None Seen /HPF (None Seen); Bilirubin Negative (Negative); Blood Moderate (Negative); Epithelial Cells None Seen /HPF (None Seen); Glucose, Urine Negative (Negative); Hyaline Casts NONE SEEN /LPF (0-2); Ketones Negative (Negative); Leukocyte Esterase Negative (Negative); Nitrite Negative (Negative); Protein,Urine Dip Trace (Negative); RBC 21-50 /HPF (0-5); Urobilinogen 0.2 mg/dL (0.2); WBC 0-2 /HPF (0-5)
[2024-05-10 08:25] VITALS: RESP 14
[2024-05-10 08:55] LABS: HCG SERUM TEST NEGATIVE (NEGATIVE)
[2024-05-10 09:04] VITALS: PULSE 89
[2024-05-10 09:04] LABS: ALBUMIN 4.1 g/dL (3.5-5.0); ANION GAP 11.2 MEQ/L (5-15); BILIRUBIN,TOTAL 0.2 mg/dL (0.2-1.3); Calcium 9.8 mg/dL (8.4-10.2); Creatinine 1 0.62 mg/dL (0.52-1.04); EST GLOMERULAR FILTRATION RATE 123.6 ML/MIN; MAGNESIUM 1.7 mg/dL (1.6-2.3); Potassium 4.1 mmol/L (3.5-5.1); TSH, 3RD Generation 0.784 mIU/L (0.470-4.680); Total Protein 7.1 g/dL (6.3-8.2)
--- NOTE | 2024-05-10 11:02 | XRAY ---
Indication: Dizziness. Multiple contiguous axial images obtained through the head without contrast. Comparison: None Normal appearing brain parenchyma, ventricles, and bony calvarium. Visualized paranasal sinuses and mastoid air cells are clear. Impression: Normal CT head without contrast exam.
--- NOTE | 2024-05-10 11:13 | XRAY ---
Indication: Short of breath. Tachycardia. Hypertension. Left leg DVT diagnosed one day earlier. Multiple contiguous axial images obtained through the chest using 80 cc Isovue 370 contrast and PE protocol. Comparison: February 12, 2021 Good opacification pulmonary arteries to include lobar segmental branches. New tiny nonoccluding emboli in segmental branchs of right upper and right lower lobes. Heart not enlarged. Aorta is normal in course and caliber. No pathologic mediastinal/hilar lymphadenopathy. Lungs inflated and remain clear. Bony thorax intact. Limited upper abdomen again demonstrates fatty liver. Impression: 1. New tiny nonoccluding pulmonary emboli in right upper and right lower lobes. No infarct. 2. Again incidental fatty liver.
[2024-05-10 11:57] VITALS: BP 149/101; O2SAT 100
== END 2024-05-10 11:57 | disposition home or self-care (01) ==
LOC: ED 07:17
DX: I26.99 Other pulmonary embolism without acute cor pulmonale (principal); R42 Dizziness and giddiness; R06.02 Shortness of breath; I10 Essential (primary) hypertension; Z79.01 Long term (current) use of anticoagulants; Z79.899 Other long term (current) drug therapy
CPT/HCPCS: 36415; 70450; 71260; 80053; 81001; 83735; 84439; 84443; 84484; 84703; 85025; 93005; 93041; 96360; 99284; 99285

== ENCOUNTER 2024-05-22 05:59 | Day surgery (SDC) | payer OTHER ==
[2024-05-22 06:18] LABS: HCG URINE TEST NEGATIVE (NEGATIVE)
[2024-05-22] MEDS ORDERED: DIPRIVAN 200 MG/20 ML IV ONE ×2 (07:47→08:03)
[2024-05-22 08:25] VITALS: RESP 16; TEMP 97.1
[2024-05-22 08:38] VITALS: BP 117/73; PULSE 73; O2SAT 98
--- NOTE | 2024-05-24 01:41 | OP ---
SURGERY DATE/TIME: 05/22/2024 [id number] PREOPERATIVE DIAGNOSES: 1) Duodenitis on CT scan. 2) Epigastric pain. POSTOPERATIVE DIAGNOSIS: Normal exam. PROCEDURE: Esophagogastroduodenoscopy. SURGEON: Srikanth Castillo MD ANESTHESIA: Mac by Mark Britton CRNA. ESTIMATED BLOOD LOSS: None. SPECIMENS: None. DESCRIPTION OF PROCEDURE AND FINDINGS: After informed written consent was obtained, the patient was taken to the endoscopy suite. She was placed in the left lateral decubitus position and a bite block was inserted. After anesthesia was titrated to the desired level of consciousness, the endoscope was inserted in the posterior oropharynx under direct visualization and the esophagus was traversed. There was a normal appearance. No lesions or defects. Upon entering into the stomach, there was a normal GE junction and gastric mucosa had a normal rugated appearance. No obvious lesions or bleeding. The gastric antrum showed no obvious lesions. The pylorus was traversed. The duodenum was carefully inspected. Mucosa had a normal appearance. There were no inflammatory changes. No evidence of bleeding. No masses or mucosal concerns. Upon withdrawal again, all mucosal structures were within normal appearance. The scope was removed and the patient was transferred to the recovery room in good condition. Of note, the patient has a recently diagnosed DVT and pulmonary embolism and is taking Eliquis, therefore, a decision was made to not take any samples during the examination since mucosal structures all appeared normal due to the concern for a potential bleeding risk and need to hold Eliquis for a longer period of time since this was a recently diagnosed embolus. She is discharged on her routine medications to follow up with her primary care.
== END 2024-05-22 08:50 | disposition home or self-care (01) ==
LOC: SDC 05:59
PROVIDERS: ATTEND Family Medicine
DX: K29.80 Duodenitis without bleeding (principal); R10.13 Epigastric pain
CPT/HCPCS: 81025; J2704

== ENCOUNTER 2024-07-12 16:29 | Emergency (ER) | payer OTHER ==
[2024-07-12 16:45] VITALS: TEMP 98.2
--- NOTE | 2024-07-12 17:13 | ERPHSYRPT ---
- History of Present Illness Time Seen by Provider: 07/12/24 16:54 Historian: patient Exam Limitations: no limitations Patient Subjective Stated Complaint: Pt states "I was driving and I had sudden chest pain that went into my back, I got short of breath and a little sweaty." Triage Nursing Assessment: Pt presented alert and oriented X3, skin pwd. pt ambulates with an upright steady gait, able to speak in clear full sentences. PT laughing and cracking jokes. Physician History: Pt states yesterday she started with nausea and achy 7/10 chest pain; today shortness of air. Pt states today she went to [facility] where she was positive for strep. LBM was today & wnl. Aspirin Treatment Today: 81 mg x 4, provided by ED Allergies/Adverse Reactions: morphine Allergy (Verified 05/22/24 06:19) Home Medications: Cetirizine HCl [Allergy Relief] 10 mg PO DAILY 06/24/19 [History] Montelukast Sodium 10 mg PO DAILY 06/24/19 [History] Levothyroxine Sodium 25 Mcg [Synthroid 25 Mcg] 100 mcg PO DAILY 02/12/21 [History] hydrOXYzine HCL [Hydroxyzine HCl] 25 - 50 mg PO DAILY PRN PRN 02/12/21 [History] Venlafaxine HCl [Venlafaxine HCl ER] 225 mg PO DAILY 09/04/22 [History] Gabapentin 100 mg PO TID 02/22/24 [History] lisinopriL [Lisinopril] 20 mg PO UD 05/06/24 [History] Apixaban [Eliquis] 5 mg PO BID 05/10/24 [History] Esomeprazole Magnesium 40 mg PO DAILY 07/12/24 [History] Hx Tetanus, Diphtheria Vaccination/Date Given: No Hx Influenza Vaccination/Date Given: No Hx Pneumococcal Vaccination/Date Given: No Immunizations Up to Date: No Travel Risk - International Travel Have you traveled outside of the country in past 3 weeks: No - Emerging Infectious Disease Are you exhibiting symptoms associated with any current EIDs: No Symptoms: Abdominal Pain, Vomitting - Review of Systems Constitutional: No Fever Respiratory: Dyspnea Cardiac: Chest Pain Abdominal/Gastrointestinal: Nausea, No Abdominal Pain, No Vomiting, No Diarrhea - Past Medical History Pertinent Past Medical History: Yes Neurological History: Migraines ENT History: No Pertinent History Cardiac History: Deep Vein Thrombosis, Hypertension Respiratory History: Asthma Endocrine Medical History: Hypothyroidism Musculoskeletal History: No Pertinent History GI Medical History: GERD, Gallbladder Disease History: No Pertinent History Psycho-Social History: Anxiety, Depression Female Reproductive Disorders: Other Other Medical History: PREVIOUS HYPOTHYROIDSM THAT HAS RESOLVED. DVT in left leg - Past Surgical History Past Surgical History: Yes Neuro Surgical History: No Pertinent History Cardiac: No Pertinent History Respiratory: No Pertinent History Gastrointestinal: Cholecystectomy, Other Genitourinary: No Pertinent History Musculoskeletal: No Pertinent History Female Surgical History: No Pertinent History Other Surgical History: EGD Significant Family History: MIGRANES - Female History Hx Last Menstrual Period: 06/12/2025 Hx Now: No - Social History Smoking Status: Never smoker Exposure to second hand smoke: No Drug Use: none Patient Lives Alone: No - Social Determinants of Health Will the patient participate in the screening: Yes Do you worry about a steady place to live?: No Do you have any problems with any of the following?: No known problems In the past 12 months,have you had to go without utilities?: No Transportation Issues: No Has anyone in your support network made you feel unsafe?: No Have you or anyone in your house had to go without enough: No - Nursing Vital Signs Nursing Vital Signs: Initial Vital Signs Temperature 98.2 F 07/12/24 16:36 Pulse Rate 111 H 07/12/24 16:36 Respiratory Rate 20 07/12/24 16:36 Blood Pressure 136/82 07/12/24 16:36 O2 Sat by Pulse Oximetry 97 07/12/24 16:36 Pain Scale Pain Intensity 0 - Physical Exam General Appearance: alert Eye Exam: PERRL/EOMI Ears, Nose, Throat Exam: pharyngeal erythema Neck Exam: normal inspection Respiratory Exam: lungs clear Cardiovascular Exam: normal heart sounds Gastrointestinal/Abdomen Exam: normal bowel sounds Neurologic Exam: alert, cooperative Skin Exam: warm, dry SpO2 Interpretation: normal SpO2: 97 O2 Delivery: Room Air - Course Nursing assessment & vital signs reviewed: Yes EKG Interpreted by Me: RATE (96), Sinus Rhythm, NORMAL AXIS, Other (QTc = 425) - CT Exams Chest CT Interpretation: Discussed w/radiologist (No obvious central PE.) Ordered Tests: Active Orders 24 hr Category Date Time Status Lehr Tender STAT Care 07/12/24 17:12 Active EKG-ER Only STAT Care 07/12/24 17:11 Active IV Insertion STAT Care 07/12/24 17:11 Active CHEST WITH CONTRAST [CT] Stat Exams 07/12/24 17:12 Taken AMYLASE Stat Lab 07/12/24 17:20 Completed CBC W DIFF Stat Lab 07/12/24 17:20 Completed CMP Stat Lab 07/12/24 17:20 Completed HCG QUALITATIVE, SERUM Stat Lab 07/12/24 17:20 Completed LIPASE Stat Lab 07/12/24 17:20 Completed MAGNESIUM Stat Lab 07/12/24 17:20 Completed TROPONIN Q4H Lab 07/12/24 17:20 Completed TROPONIN Q4H Lab 07/12/24 21:15 Ordered TROPONIN Q4H Lab 07/13/24 01:15 Ordered Medication Summary Discontinued Medications Generic Name Dose Route Start Last Admin Trade Name Freq PRN Reason Stop Dose Admin Acetaminophen 1,000 mg in 100 mls @ 400 mls/hr 07/12/24 17:12 07/12/24 17:36 Ofirmev IV 07/12/24 17:26 400 mls/hr 1HRPRIOR ONE Administration Acetaminophen Confirm 07/12/24 17:31 Ofirmev Administered 07/12/24 17:32 Dose 100 mls @ ud IV .STK-MED ONE Lab/Rad Data: Laboratory Result Diagrams 07/12/24 17:20 07/12/24 17:20 Laboratory Results 07/12/24 07/12/24 07/12/24 Range/Units 17:20 17:20 17:20 WBC (3.98-10.04) x10^3/uL RBC (3.93-5.22) x10^6/uL Hgb (11.2-15.7) g/dL Hct (34.1-44.9) % MCV (79.4-94.8) fL MCH (25.6-32.2) pg MCHC (32.2-35.5) g/dL RDW (11.7-14.4) % Plt Count (182-369) x10^3/uL MPV (9.4-12.3) fL Gran % (34.0-71.1) % Immature Gran % (Auto) (0.001-0.429) % Nucleat RBC Rel Count (0.00-0.2) % Eos # (Auto) (0.04-0.36) x10^3/uL Immature Gran # (Auto) (0.001-0.031) x10^3u/L Absolute Lymphs (auto) (1.18-3.74) x10^3/uL Absolute Monos (auto) (0.24-0.86) x10^3/uL Absolute Nucleated RBC (0.00-0.012) x10^3u/L Lymphocytes % (19.3-51.7) % Monocytes % (4.7-12.5) % Eosinophils % (0.7-5.8) % Basophils % (0.1-1.2) % Absolute Granulocytes (1.56-6.13) x10^3/uL Basophils # (0.01-0.08) x10^3/uL Sodium (135-145) mmol/L Potassium (3.5-5.1) mmol/L Chloride (98-107) mmol/L Carbon Dioxide (22-30) mmol/L Anion Gap (5-15) MEQ/L BUN (7-17) mg/dL Creatinine (0.52-1.04) mg/dL Estimated GFR ML/MIN Glucose (74-106) mg/dL Calcium (8.4-10.2) mg/dL Magnesium (1.6-2.3) mg/dL Total Bilirubin (0.2-1.3) mg/dL AST (14-36) U/L ALT (0-35) U/L Alkaline Phosphatase (38-126) U/L Troponin I < 0.012 (0.000-0.033) ng/mL Serum Total Protein (6.3-8.2) g/dL Albumin (3.5-5.0) g/dL Amylase 42 (30-110) U/L Lipase 95 (23-300) U/L Serum HCG, Qual NEGATIVE (NEGATIVE) 07/12/24 07/12/24 Range/Units 17:20 17:20 WBC 11.8 H (3.98-10.04) x10^3/uL RBC 4.20 (3.93-5.22) x10^6/uL Hgb 11.9 (11.2-15.7) g/dL Hct 35.6 (34.1-44.9) % MCV 84.8 (79.4-94.8) fL MCH 28.3 (25.6-32.2) pg MCHC 33.4 (32.2-35.5) g/dL RDW 14.3 (11.7-14.4) % Plt Count 303 (182-369) x10^3/uL MPV 10.3 (9.4-12.3) fL Gran % 79.4 H (34.0-71.1) % Immature Gran % (Auto) 0.4 (0.001-0.429) % Nucleat RBC Rel Count 0.0 (0.00-0.2) % Eos # (Auto) 0.02 L (0.04-0.36) x10^3/uL Immature Gran # (Auto) 0.05 H (0.001-0.031) x10^3u/L Absolute Lymphs (auto) 1.49 (1.18-3.74) x10^3/uL Absolute Monos (auto) 0.84 (0.24-0.86) x10^3/uL Absolute Nucleated RBC 0.00 (0.00-0.012) x10^3u/L Lymphocytes % 12.6 L (19.3-51.7) % Monocytes % 7.1 (4.7-12.5) % Eosinophils % 0.2 L (0.7-5.8) % Basophils % 0.3 (0.1-1.2) % Absolute Granulocytes 9.39 H (1.56-6.13) x10^3/uL Basophils # 0.04 (0.01-0.08) x10^3/uL Sodium 136 (135-145) mmol/L Potassium 3.9 (3.5-5.1) mmol/L Chloride 103 (98-107) mmol/L Carbon Dioxide 24 (22-30) mmol/L Anion Gap 13.0 (5-15) MEQ/L BUN 9 (7-17) mg/dL Creatinine 0.64 (0.52-1.04) mg/dL Estimated GFR 122.6 ML/MIN Glucose 86 (74-106) mg/dL Calcium 9.2 (8.4-10.2) mg/dL Magnesium 1.6 (1.6-2.3) mg/dL Total Bilirubin 0.50 (0.2-1.3) mg/dL AST 31 (14-36) U/L ALT 37 H (0-35) U/L Alkaline Phosphatase 70 (38-126) U/L Troponin I (0.000-0.033) ng/mL Serum Total Protein 7.1 (6.3-8.2) g/dL Albumin 4.4 (3.5-5.0) g/dL Amylase (30-110) U/L Lipase (23-300) U/L Serum HCG, Qual (NEGATIVE) - Progress Progress: improved Counseled pt/family regarding: lab results, diagnosis, need for follow-up, rad results Medical Desision Making - Diagnostic Testing Diagnostic test were ordered, analyzed, and reviewed by me: Yes Radiological Interpretation: Discussed w/ radiologist - Departure Departure Disposition: Home Clinical Impression: Strep pharyngitis, Chest pain Condition: Stable Critical Care Time: No Referrals: VANESSA JAIN [Primary Care Provider] - Follow up/PCP as directed Instructions: Chest Pain (DC), Strep throat in adults Additional Instructions: Follow up with private doctor tomorrow. Prescriptions: Cefpodoxime Proxetil 200 mg [Vantin 200 mg] 200 mg PO BID #20 tablet
[2024-07-12 17:28] LABS: Absolute Neutrophil Ct (ANC) 9.39 x10^3/uL (1.56-6.13); BASOPHIL % 0.3 % (0.1-1.2); Basophil (Absolute #) 0.04 x10^3/uL (0.01-0.08); Eosinophil % 0.2 % (0.7-5.8); Eosinophil (Absolute #) 0.02 x10^3/uL (0.04-0.36); Hematocrit 35.6 % (34.1-44.9); Hemoglobin 11.9 g/dL (11.2-15.7); IMMATURE GRAN # 0.05 x10^3u/L (0.001-0.031); IMMATURE GRAN % 0.4 % (0.001-0.429); Lymphocyte (Absolute #) 1.49 x10^3/uL (1.18-3.74); Lymphocytes % 12.6 % (19.3-51.7); Mean Cell Volume 84.8 fL (79.4-94.8); Mean Corpuscular Hemoglobin 28.3 pg (25.6-32.2); Mean Corpuscular Hgb Concent. 33.4 g/dL (32.2-35.5); Mean Platelet Volume 10.3 fL (9.4-12.3); Monocyte (Absolute #) 0.84 x10^3/uL (0.24-0.86); Monocytes % 7.1 % (4.7-12.5); Neutrophil % 79.4 % (34.0-71.1); Platelet Count 303 x10^3/uL (182-369); Red Cell Distribution Width 14.3 % (11.7-14.4); White Blood Count 11.8 x10^3/uL (3.98-10.04)
[2024-07-12] MEDS ORDERED: OFIRMEV 100 ML IV ONE (17:31)
[2024-07-12] MEDS: OFIRMEV 1,000 MG/100 ML ML IV ONE (17:36)
[2024-07-12 17:40] LABS: HCG SERUM TEST NEGATIVE (NEGATIVE)
[2024-07-12 17:41] LABS: ALBUMIN 4.4 g/dL (3.5-5.0); AMYLASE 42 U/L (30-110); BILIRUBIN,TOTAL 0.5 mg/dL (0.2-1.3); Calcium 9.2 mg/dL (8.4-10.2); Creatinine 1 0.64 mg/dL (0.52-1.04); EST GLOMERULAR FILTRATION RATE 122.6 ML/MIN; LIPASE 95 U/L (23-300); MAGNESIUM 1.6 mg/dL (1.6-2.3); Potassium 3.9 mmol/L (3.5-5.1); Total Protein 7.1 g/dL (6.3-8.2)
[2024-07-12] MEDS ORDERED: Zofran 4 MG/2 ML VIAL ONE (20:34)
[2024-07-12] MEDS ORDERED: BABY ASPIRIN 81 MG CHEW ONE (20:35)
[2024-07-12] MEDS ORDERED: ROCEPHIN 1 GM / 100 ML NaCl 1 GM/100 ML IVPB IV ONE (20:35)
[2024-07-12] MEDS: BABY ASPIRIN 81 MG CHEW PO ONE (20:37)
[2024-07-12] MEDS: Zofran 4 MG/2 ML VIAL IV ONE (20:38)
[2024-07-12] MEDS: ROCEPHIN 1 GM / 100 ML NaCl 1 GM/100 ML IVPB IV ONE (20:39)
[2024-07-12 21:16] VITALS: BP 127/80; PULSE 102; RESP 23; O2SAT 98
--- NOTE | 2024-07-12 21:46 | XRAY ---
Indication: Chest pain. History DVT. Multiple contiguous axial images obtained through the chest using 80 cc Isovue 370 contrast and PE protocol. Comparison: May 10, 2024 Suboptimal opacification pulmonary arteries limits evaluation for pulmonary embolus. No obvious central pulmonary embolus. Heart not enlarged. Aorta is normal in course and caliber. No pathologic mediastinal/hilar lymphadenopathy. Lungs inflated and remain clear. Bony thorax intact. Limited upper abdomen again demonstrates fatty liver. Impression: 1. Pulmonary embolus evaluation limited due to suboptimal contrast opacification. No obvious pulmonary embolus. 2. No new/acute cardiopulmonary abnormalities. 3. Again incidental fatty liver.
== END 2024-07-12 21:24 | disposition home or self-care (01) ==
LOC: ED 16:29
DX: J02.0 Streptococcal pharyngitis (principal); R07.9 Chest pain, unspecified; R06.02 Shortness of breath; R11.0 Nausea; I10 Essential (primary) hypertension; Z79.01 Long term (current) use of anticoagulants; Z79.899 Other long term (current) drug therapy
CPT/HCPCS: 36415; 71260; 80053; 82150; 83690; 83735; 84484; 84703; 85025; 93005; 93041; 96374; 96375; 99284; 99285; J0696; J2405; A9270-GY